=== PATIENT | female | born 1950 | race Caucasian/White ===

== ENCOUNTER 2018-09-16 07:06 | Day surgery (SDC) | payer OTHER ==
[~2018-09-16] VITALS: Ht 167.6 cm; Wt 76.1 kg
[~2018-09-16 07:06] MED LIST: AMLO10; AMLO5 PO; ASPI325 PO; ASPI81CH PO; ATEN50; ATOR80 PO; BACL10 PO; BELSOMRA20 MG PO; CLON1 PO; CLOP75 PO; Crutch1 EACH MISC; DIPH50; DIVA500EC PO; DOCU100 PO; ESTEST.62T; ESTR.75; HYDACE10B; HYDACE10B PO; HYDMOR2 PO; HYDR-86 PO; HYOS0.375T; IBUP800 PO; ISOMON30; LISI10; LISI5 PO; METF500 PO; METO50 PO; METO50ER PO; MULTI VITAMIN1 EACH PO; NAPR500 PO; NEBI10 PO; NEBI5 PO; NITR.6SL SL; Norco 10-325 T1 EACH PO; OLAN5 PO; OMEP20ER; OSTERA TABLET1 EACH PO; OXYACE5T PO; PANT40 PO; PREG75 PO; PROM25 PO; PROM25S PR; Prednisone20 MG PO; QUET300; RANO500T PO; RENEXA; SERT100 PO; SIMCOR; TRAZ150T57 PO; VENL75ER; VYTORIN
--- NOTE | 2018-09-16 08:08 | NUR ---
09/16/18 0808 Su Pollock V PT RESTING IN BED, SIDE RAILS IN PLACE, CALL LIGHT WITHIN REACH, VSS. PT REPORTS CHRONIC BACK PAIN 11/13, KNEES OF THE BED ELEVATED FOR COMFORT. PT TEACHING COMPLETED, PT DENIES QUESTIONS AT THIS TIME. NO PRE OP ORDERS PER DR. COHN.
--- NOTE | 2018-09-16 11:32 | NUR ---
09/16/18 1132 Beryl Zuleta RN TOOK REPORT AT 1125 FROM [facility].KT PT IS NOW IN THE CHAIR, ACCOMPANIED BY HER MOM AND SISTER. VSS. PT HAS PO FLUIDS AT CHAIRSIDE. PT IS TOELRATING PO FLUIDS WELL. PT DENIES PAIN AT THIS TIME. WARM BLANKETS PROVIDED. CALL LIGHT IN REACH.
== END 2018-09-16 12:08 | disposition home or self-care (01) ==
LOC: ORSCSDS 07:06
PROVIDERS: Surgery
PROC: 0HBT0ZZ Excision of Right Breast, Open Approach (ICD-10-PCS; principal; 2018-09-16 08:30)
DX: D05.11 Intraductal carcinoma in situ of right breast (principal); I25.10 Atherosclerotic heart disease of native coronary artery without angina pectoris; E11.9 Type 2 diabetes mellitus without complications; E78.5 Hyperlipidemia, unspecified; I10 Essential (primary) hypertension; Z79.899 Other long term (current) drug therapy
CPT/HCPCS: 82947; 88307; J2001; J2250; J2405; J3010; J7120

== ENCOUNTER → 2019-01-17 | Outpatient (CLI) | payer OTHER | END | disposition home or self-care (01) | LOC: LAB SHORT 18:23 → LAB 18:23 | DX: R30.0 Dysuria (principal) | CPT/HCPCS: 87086; 87147 ==

== ENCOUNTER 2019-11-01 08:23 | Day surgery (SDC) | payer OTHER ==
[~2019-11-01] VITALS: Ht 165.1 cm; Wt 71.0 kg
[~2019-11-01 08:23] MED LIST changes: +ANASTROZOLE5 GM PO; +COQ1050 MG PO; +Prinivil10 MG PO; +VITAMIN D35000 UNI2 PO; +Voltaren100 GM TD
[2019-11-01] MEDS ORDERED: METO50 PO (08:46)
[2019-11-01] MEDS ORDERED: [UNRECOGNIZED DRUG - OTHER] PO (08:52)
[2019-11-01] MEDS ORDERED: STOOL SOFTENER PO (08:56)
--- NOTE | 2019-11-01 11:35 | NUR ---
PT TO RECOVERY ROOM POST PROCEDURE. PT IS DROWSY, BUT ORIENTED AND CONVERSING APPROPRIATELY. PT DENIES CHEST PAIN/PRESSRE POST PROCEDURE. PT REPORTS BACK DISCOMFORT 4/10, CHRONIC-DENIES THE NEED FOR MEDICATION. MONITOR ST 100'S, B/P 107/60, AFEBRILE, SPO2 100% RA. R GROIN SITE NO SWELLING/HEMATOMA, VINCE AND TEGADERM DRSG INTACT-OLD DRAINAGE NOTED MAPPED; RLE +2 PULSES DP AND PT. PT'S SISTER AT THE BEDSIDE, UPDATED.
--- NOTE | 2019-11-01 12:35 | NUR ---
PT TOOK LUNCH WITHOUT PROBLEM.
[2019-11-01] MEDS ORDERED: AMLO5 PO (13:09)
--- NOTE | 2019-11-01 15:15 | NUR ---
PT AMB TO BATHROOM, GAIT STEADY, SITE UNCHANGED WITH ACTIVITY.
--- NOTE | 2019-11-01 15:50 | NUR ---
PT DRESSED SELF WITH MIN ASSISTANCE, SITE UNCHANGED; REVIEWED SITE MANAGEMENT WITH PT AND SISTER. IV REMOVED, CANNULA INTACT.
--- NOTE | 2019-11-01 15:58 | NUR ---
PT AND SISTER RECEIVED DISCHARGE INSTRUCTIONS, MED LIST AND AFTER CARE INSTRUCTIONS; VERBALIZED GOOD UNDERSTANDING. PT LEFT FACILITY WITH SISTER VIA W/C, CONDITION STABLE.
== END 2019-11-01 15:58 | disposition home or self-care (01) ==
LOC: MHTC 08:23
PROC: B201YZZ Plain Radiography of Multiple Coronary Arteries using Other Contrast (ICD-10-PCS; principal; 2019-11-01)
PROC: B202YZZ Plain Radiography of Single Coronary Artery Bypass Graft using Other Contrast (ICD-10-PCS; principal; 2019-11-01)
PROC: 4A023N7 Measurement of Cardiac Sampling and Pressure, Left Heart, Percutaneous Approach (ICD-10-PCS; principal; 2019-11-01)
DX: I25.718 Atherosclerosis of autologous vein coronary artery bypass graft(s) with other forms of angina pectoris (principal); I25.118 Atherosclerotic heart disease of native coronary artery with other forms of angina pectoris; E11.9 Type 2 diabetes mellitus without complications; I10 Essential (primary) hypertension; E78.5 Hyperlipidemia, unspecified; K21.9 Gastro-esophageal reflux disease without esophagitis; F32.9 Major depressive disorder, single episode, unspecified; Z95.5 Presence of coronary angioplasty implant and graft; Z79.84 Long term (current) use of oral hypoglycemic drugs; Z79.899 Other long term (current) drug therapy; F41.9 Anxiety disorder, unspecified; Z88.5 Allergy status to narcotic agent; Z88.8 Allergy status to other drugs, medicaments and biological substances
CPT/HCPCS: 82947; 93455; 99152; 99153; C1769; C1894; J0360; J1644; J2250; J3010; J7030; Q9967

== ENCOUNTER 2019-11-18 11:06 | Emergency (ER) | payer OTHER ==
[~2019-11-18] VITALS: Ht 167.6 cm; Wt 68.0 kg
[~2019-11-18 11:06] MED LIST changes: +STOOL SOFTENER PO; +[UNRECOGNIZED DRUG - OTHER] PO
[2019-11-18] MEDS ORDERED: Zithromax Tri-500 MG PO (11:55)
[2019-11-18 12:05] LABS: BASOPHILS ABSOLUTE AUTO 0.01 K/mm3 (0.00-0.23); BASOPHILS PERCENT AUTO 0 % (0-2); EOSINOPHILS ABSOLUTE AUTO 0.03 K/mm3 (0.00-0.68); EOSINOPHILS PERCENT AUTO 0 % (0-6); Hematocrit 38.7 % (33.0-51.0); Hemoglobin 12.9 g/dL (11.5-16.0); IMMATURE GRAN ABSOLUTE AUTO 0.04 K/mm3 (0.00-0.10); IMMATURE GRAN PERCENT AUTO 1 % (0-1); LYMPHOCYTES ABSOLUTE AUTO 1.12 K/mm3 (0.84-5.20); LYMPHOCYTES PERCENT AUTO 14 % (21-46); MONOCYTES ABSOLUTE AUTO 0.68 K/mm3 (0.16-1.47); MONOCYTES PERCENT AUTO 8 % (4-13); Mean Corpuscular HGB 29.3 pg (26.0-34.0); Mean Corpuscular HGB Conc 33.3 g/dL (31.5-36.5); Mean Corpuscular Volume 88 fL (80-100); Mean Platelet Volume 8.4 fL (9.1-12.4); NEUTROPHILS ABSOLUTE AUTO 6.36 K/mm3 (1.96-9.15); NEUTROPHILS PERCENT AUTO 77 % (41-73); Platelet Count 356 K/mm3 (150-400); RDW Coefficient Variation 14.2 % (11.7-14.2); White Blood Cell Count 8.24 K/mm3 (4.00-11.30)
[2019-11-18 12:24] LABS: Alanine Aminotransfer (ALT/SGP 23 U/L (12-78); Albumin, Blood 3.4 g/dL (3.4-5.0); Albumin/Globulin Ratio 0.7 (0.8-1.8); Alk Phos 140 U/L (50-136); Anion Gap 10 mmol/L (6-16); Aspartate Aminotrans (AST/SGOT 16 U/L (12-37); Bilirubin, Total 0.3 mg/dL (0.1-1.0); Blood Urea Nitrogen 18 mg/dL (8-24); Bun/Creatinine Ratio 23.1 (12.0-20.0); CO2, Blood 22 mmol/L (21-32); Calcium, Blood 9.3 mg/dL (8.5-10.1); Chloride, Blood 107 mmol/L (98-108); Creatinine, Blood 0.78 mg/dL (0.40-1.00); Globulin, Blood 4.6 g/dL (2.2-4.0); Glomerular Filtration Rate >60 (60-); Glucose, Blood 186 mg/dL (70-99); Potassium, Blood 3.8 mmol/L (3.5-5.5); Sodium, Blood 139 mmol/L (136-145); Troponin I <0.015 ng/mL (0.000-0.040)
[2019-11-18 12:38] LABS: Influenza A Negative (NEGATIVE); Influenza B Negative (NEGATIVE)
[2019-11-18] MEDS ORDERED: Prednisone20 MG PO (13:09)
[2019-11-18] MEDS ORDERED: ALBU90OI INH (13:09)
== END 2019-11-18 14:06 | disposition home or self-care (01) ==
LOC: ER 11:06
PROVIDERS: Emergency Medicine; Physician Assistant
DX: J40 Bronchitis, not specified as acute or chronic (principal); E78.5 Hyperlipidemia, unspecified; I10 Essential (primary) hypertension; K21.9 Gastro-esophageal reflux disease without esophagitis; E11.42 Type 2 diabetes mellitus with diabetic polyneuropathy; Z88.5 Allergy status to narcotic agent; Z79.899 Other long term (current) drug therapy
CPT/HCPCS: 36415; 71046; 80053; 83880; 84484; 85025; 87804; 93005; 93010; 94640; 99284-25

== ENCOUNTER → 2020-09-17 | Outpatient (CLI) | payer OTHER ==
[~2020-09-17] MED LIST changes: +ALBU90OI INH; +ENOX40I SC; +OXYC5 PO; +SULTRIDS PO; +Zithromax Tri-500 MG PO
[2020-09-17 13:19] LABS: Source, Urine Clean Catch
[2020-09-17 14:10] LABS: Appearance, Urine Clear (Clear); Bilirubin, Urine Neg (Neg); Blood, Urine Neg (Neg); Color, Urine Yellow (P-Yellow); Glucose Qualitative, Urine 2+ (Neg); Ketones, Urine Neg (Neg); Leukocyte Esterase, Urine Neg (Neg); Nitrite, Urine Neg (Neg); Protein, Urine Neg (Neg); Urobilinogen, Urine NORM (Normal)
== END | disposition home or self-care (01) ==
LOC: OLS 13:17 → LAB SHORT 13:17
PROVIDERS: Nurse Practitioner Family
DX: R30.0 Dysuria (principal)
CPT/HCPCS: 81003

== ENCOUNTER 2020-10-02 12:25 | Day surgery (SDC) | payer OTHER ==
[~2020-10-02] VITALS: Ht 167.6 cm; Wt 73.6 kg
[~2020-10-02 12:25] MED LIST changes: -ENOX40I SC; -OXYC5 PO; -SULTRIDS PO
--- NOTE | 2020-10-02 18:15 | NUR ---
PT ARRIVED TO ROOM ON OWN BED, EYES CLOSED BUT ANSWERS QUESTIONS/FOLLOWS DIRECTIONS. POST OP VS COMMENCED AND STABLE. PT DENIES PAIN R/T SPINAL ANESTHESIA, IS ABLE TO WIGGLE TOES/FEET, ELEVATE LEGS MINIMALLY. PT DENIES N/V, PROVIDED WITH ICE CHIPS/SNACKS, DIET ORDERED AND DINNER TRAY REQUESTED. OPERATIVE KNEE DRESSING C/D/I, CAPILLARY REFILL <3 SECONDS ON TOES, TOES WARM/PINK
[2020-10-03 04:19] LABS: BASOPHILS ABSOLUTE AUTO 0.01 K/mm3 (0.00-0.23); BASOPHILS PERCENT AUTO 0 % (0-2); EOSINOPHILS PERCENT AUTO 0 % (0-6); Hematocrit 30.2 % (33.0-51.0); IMMATURE GRAN ABSOLUTE AUTO 0.02 K/mm3 (0.00-0.10); IMMATURE GRAN PERCENT AUTO 0 % (0-1); LYMPHOCYTES ABSOLUTE AUTO 0.53 K/mm3 (0.84-5.20); LYMPHOCYTES PERCENT AUTO 5 % (21-46); MONOCYTES PERCENT AUTO 3 % (4-13); Mean Corpuscular HGB 29.3 pg (26.0-34.0); Mean Corpuscular HGB Conc 33.1 g/dL (31.5-36.5); Mean Corpuscular Volume 89 fL (80-100); Mean Platelet Volume 9.6 fL (9.1-12.4); NEUTROPHILS ABSOLUTE AUTO 9.18 K/mm3 (1.96-9.15); NEUTROPHILS PERCENT AUTO 91 % (41-73); Platelet Count 188 K/mm3 (150-400); RDW Standard Deviation 41.7 fL (35.1-46.3); Red Blood Cell Count 3.41 M/mm3 (3.80-5.20); White Blood Cell Count 10.04 K/mm3 (4.00-11.30)
[2020-10-03 04:35] LABS: Anion Gap 5 mmol/L (6-16); Blood Urea Nitrogen 20 mg/dL (8-24); CO2, Blood 26 mmol/L (21-32); Chloride, Blood 108 mmol/L (98-108); Creatinine, Blood 0.67 mg/dL (0.40-1.00); Glomerular Filtration Rate >60 (60-); Glucose, Blood 184 mg/dL (70-99); Potassium, Blood 4.4 mmol/L (3.5-5.5); Sodium, Blood 139 mmol/L (136-145)
--- NOTE | 2020-10-03 05:52 | NUR ---
SUMMARY PT REQUIRING BOTH IV AND PO PAIN MEDS TONIGHT. AMBULATES WITH WALKER AND ASSSIST. TOLERATING PO AND VOIDING.
[2020-10-03] MEDS ORDERED: ENOX40I SC (13:20)
[2020-10-03] MEDS ORDERED: OXYC5 PO (13:21)
[2020-10-03] MEDS ORDERED: PROM25 PO (13:22)
[2020-10-03] MEDS ORDERED: SULTRIDS PO (13:22)
--- NOTE | 2020-10-03 17:59 | NUR ---
DISCHARGE PT AND HER SISTER WERE PROVIDED WITH WRITTEN AND VERBAL DISCHARGE INSTRUCTIONS; THEY REPORTED UNDERSTANDING. PT WAS GIVEN EDUCATION ABOUT INCREASING HER METFORMIN TO TWICE DAILY INSTEAD OF ONCE DAILY IN ORDER TO BETTER MANAGE HER BLOOD GLUCOSE. DR. GAMBLE CONSULTED ON THIS PT AND MADE THE RECOMMENDATION TO INCREASE THE METFORMIN AND FOLLOW UP WITH PT'S PCP; OK FOR DISCHARGE PER DR. GAMBLE'S STANDPOINT. PT WAS ALSO EDUCATED TO FOLLOW UP WITH HER PCP WITHIN 1 WEEK TO ENSURE HER BLOOD SUGARS ARE LESS THAN 180 [address] OPTIMAL WOUND HEALING. DR. EMANUEL WAS NOTIFIED OF PLAN TO MANAGE BLOOD GLUCOSE LEVELS AND THAT BLOOD GLUCOSE WAS 225 AT LUNCH, OK TO CONTINUE WITH DISCHARGE PLAN FOR TODAY PER DR. EMANUEL. CLEAN DRESSINGS PROVIDED FOR DRESSING CHANGES. PT WAS ESCORTED OUT IN W/C BY MILTON STUDENT NURSE. PAIN MANAGED AT TIME OF DISCHARGE, PT TOLERATED PO AND VOIDING WELL.
== END 2020-10-03 16:49 | disposition home or self-care (01) ==
LOC: ORSCMMR 12:25 → ORD 14:30 → SURS 17:24 → ORSCMMR 17:24 → SURS 10-03 16:49
PROVIDERS: Orthopaedic Surgery
DX: M17.11 Unilateral primary osteoarthritis, right knee (principal); I10 Essential (primary) hypertension; I25.10 Atherosclerotic heart disease of native coronary artery without angina pectoris; K21.9 Gastro-esophageal reflux disease without esophagitis; E11.9 Type 2 diabetes mellitus without complications; F31.9 Bipolar disorder, unspecified; Z79.899 Other long term (current) drug therapy; Z79.82 Long term (current) use of aspirin
CPT/HCPCS: 36415; 73560-RT; 80048; 82947; 83735; 85025; 88300; 97110; 97116; 97162; A9270; C1713; C1776; J0171; J1100; J1170; J1650; J1815; J1885; J2250; J2405; J2704; J2795; J3010; J3370; J7120

== ENCOUNTER 2022-01-15 12:36 | Day surgery (SDC) | payer OTHER ==
[~2022-01-15] VITALS: Ht 167.6 cm; Wt 76.1 kg
[~2022-01-15 12:36] MED LIST changes: +ANASTROZOLE1 M7 PO; +Cyclobenzaprine5 MG PO; +ENOX40I SC; +ESCI10 PO; +FURO20 PO; +ONDA4 PO; +OXYC5 PO; +SULTRIDS PO
[2022-01-15] MEDS ORDERED: ATOR10 (13:32)
== END 2022-01-15 16:54 | disposition home or self-care (01) ==
LOC: ORSCSDS 12:36
PROVIDERS: Internal Medicine Gastroenterology
PROC: 0DBH8ZX Excision of Cecum, Via Natural or Artificial Opening Endoscopic, Diagnostic (ICD-10-PCS; principal; 2022-01-15 14:00)
PROC: 0DBN8ZX Excision of Sigmoid Colon, Via Natural or Artificial Opening Endoscopic, Diagnostic (ICD-10-PCS; principal; 2022-01-15 14:00)
PROC: 0DBP8ZX Excision of Rectum, Via Natural or Artificial Opening Endoscopic, Diagnostic (ICD-10-PCS; principal; 2022-01-15 14:00)
DX: R15.9 Full incontinence of feces (principal); K59.09 Other constipation; Z86.010 Personal history of colon polyps; D12.0 Benign neoplasm of cecum; D12.5 Benign neoplasm of sigmoid colon; K62.1 Rectal polyp; K62.6 Ulcer of anus and rectum; K57.30 Diverticulosis of large intestine without perforation or abscess without bleeding; E11.9 Type 2 diabetes mellitus without complications; Z79.82 Long term (current) use of aspirin; Z79.84 Long term (current) use of oral hypoglycemic drugs; Z79.899 Other long term (current) drug therapy
CPT/HCPCS: 82947; 88305; J0330; J0461; J2405; J2704; J7120

== ENCOUNTER → 2022-08-20 | Outpatient (CLI) | payer OTHER ==
[~2022-08-20] MED LIST changes: +ATOR10; +COQ-10100 MG PO
== END | disposition home or self-care (01) ==
LOC: LAB 10:49 → LAB SHORT 10:49
PROVIDERS: Family Medicine
DX: Z51.81 Encounter for therapeutic drug level monitoring (principal); Z79.818 Long term (current) use of other agents affecting estrogen receptors and estrogen levels; Z79.891 Long term (current) use of opiate analgesic
CPT/HCPCS: G0480

== ENCOUNTER 2022-11-17 23:08 | Inpatient (IN) | payer OTHER ==
[~2022-11-17] VITALS: Ht 167.6 cm; Wt 80.8 kg
[2022-11-17 23:36] LABS: BASOPHILS ABSOLUTE AUTO 0.05 K/mm3 (0.00-0.23); BASOPHILS PERCENT AUTO 0 % (0-2); EOSINOPHILS ABSOLUTE AUTO 0.07 K/mm3 (0.00-0.68); EOSINOPHILS PERCENT AUTO 1 % (0-6); Hematocrit 42.2 % (33.0-51.0); Hemoglobin 14.2 g/dL (11.5-16.0); IMMATURE GRAN ABSOLUTE AUTO 0.05 K/mm3 (0.00-0.10); IMMATURE GRAN PERCENT AUTO 0 % (0-1); LYMPHOCYTES ABSOLUTE AUTO 1.66 K/mm3 (0.84-5.20); LYMPHOCYTES PERCENT AUTO 13 % (21-46); MONOCYTES ABSOLUTE AUTO 0.74 K/mm3 (0.16-1.47); MONOCYTES PERCENT AUTO 6 % (4-13); Mean Corpuscular HGB 28.7 pg (26.0-34.0); Mean Corpuscular HGB Conc 33.6 g/dL (31.5-36.5); Mean Corpuscular Volume 85 fL (80-100); Mean Platelet Volume 10.2 fL (9.1-12.4); NEUTROPHILS ABSOLUTE AUTO 10.57 K/mm3 (1.96-9.15); NEUTROPHILS PERCENT AUTO 81 % (41-73); Platelet Count 272 K/mm3 (150-400); RDW Coefficient Variation 13.2 % (11.7-14.2); RDW Standard Deviation 40.9 fL (35.1-46.3); Red Blood Cell Count 4.94 M/mm3 (3.80-5.20); White Blood Cell Count 13.14 K/mm3 (4.00-11.30)
[2022-11-17 23:53] LABS: Bilirubin, Total 0.5 mg/dL (0.1-1.0); Bun/Creatinine Ratio 31.6 (12.0-20.0); Calcium, Blood 9.7 mg/dL (8.5-10.1); Creatinine, Blood 0.76 mg/dL (0.40-1.00); Potassium, Blood 3.8 mmol/L (3.5-5.5)
[2022-11-18 01:42] LABS: Source, Urine Clean Catch
[2022-11-18 02:03] LABS: Bilirubin, Urine Neg (Neg); Blood, Urine Neg (Neg); Glucose Qualitative, Urine 3+ (Neg); Ketones, Urine 2+ (Neg); Leukocyte Esterase, Urine Neg (Neg); Nitrite, Urine Neg (Neg); Protein, Urine 1+ (Neg); Urobilinogen, Urine NORM (Normal)
[2022-11-18 02:19] LABS: Appearance, Urine Clear (Clear); Color, Urine Yellow (P-Yellow)
--- NOTE | 2022-11-18 07:28 | NUR ---
Patient was admitted via stretcher from ED at 0327. Pt is able to ambulate to bathroom. Pt is in Isolation for GI panel. Pt has only voided since admit to room. Patient is incontinent and continent of urine. Attends in place. Pt has increased blood pressure that was rechecked manually. Pt is painful. Pt has lower abdominal pain that is crampy and sharp 8/10. Doctor Giovani notified of increased BP, increased heartrate, no order received at that time for BP. Pt was medicated with MS 1 mg for pain with mild relief. Pt given percocet 1 tab at 0700. Patient did rest lightly. Pt did receive 2nd NS bolus as ordered, lab to retry to draw lactic acid lab, unable to get at this time. Pt is able to call with needs. Call light in reach.
[2022-11-18 08:06] LABS: Albumin, Blood 3.8 g/dL (3.4-5.0); Bilirubin, Total 0.5 mg/dL (0.1-1.0); Bun/Creatinine Ratio 29.7 (12.0-20.0); Calcium, Blood 8.7 mg/dL (8.5-10.1); Creatinine, Blood 0.54 mg/dL (0.40-1.00); Globulin, Blood 3.7 g/dL (2.2-4.0); Potassium, Blood 3.8 mmol/L (3.5-5.5); Total Protein, Blood 7.5 g/dL (6.4-8.2)
[2022-11-18 09:09] LABS: BASOPHILS ABSOLUTE AUTO 0.03 K/mm3 (0.00-0.23); BASOPHILS PERCENT AUTO 0 % (0-2); EOSINOPHILS PERCENT AUTO 0 % (0-6); Hematocrit 42.3 % (33.0-51.0); Hemoglobin 13.9 g/dL (11.5-16.0); IMMATURE GRAN ABSOLUTE AUTO 0.04 K/mm3 (0.00-0.10); IMMATURE GRAN PERCENT AUTO 0 % (0-1); LYMPHOCYTES ABSOLUTE AUTO 0.82 K/mm3 (0.84-5.20); LYMPHOCYTES PERCENT AUTO 7 % (21-46); MONOCYTES ABSOLUTE AUTO 0.92 K/mm3 (0.16-1.47); MONOCYTES PERCENT AUTO 7 % (4-13); Mean Corpuscular HGB 28.6 pg (26.0-34.0); Mean Corpuscular HGB Conc 32.9 g/dL (31.5-36.5); Mean Corpuscular Volume 87 fL (80-100); Mean Platelet Volume 9.9 fL (9.1-12.4); NEUTROPHILS PERCENT AUTO 86 % (41-73); Platelet Count 181 K/mm3 (150-400); RDW Coefficient Variation 13.4 % (11.7-14.2); RDW Standard Deviation 42.8 fL (35.1-46.3); Red Blood Cell Count 4.86 M/mm3 (3.80-5.20); White Blood Cell Count 12.61 K/mm3 (4.00-11.30)
--- NOTE | 2022-11-18 09:53 | NUR ---
CALLED DR DUONG- PT LETHARGIC HAVING DIFFICULTY ANSWERING QUESTIONS. PT STATES 8/10 CHEST PAIN NO RADIATION TO THE ARM OR JAW, PT IS UNABLE TO DESCRIBE THE PAIN. FLUID BOLUS IS CURRENTLY RUNNING SBP IN THE 170'S. RECIEVED ORDER FOR STAT EKG, (ONE WAS DONE THIS MORNING DUE TO TACHY HR AND CRITICAL LABS) ADDITIONAL ONE ORDERED STAT D/T NEW ONST CHEST PAIN. TROPONIN ORDERED. SEPSIS FLUID BOLUS ORDERED. MD AT THE BEDSIDE NOW.
--- NOTE | 2022-11-18 10:37 | NUR ---
CALLED REPORT TO MRI CT TECHSUNI HAYES PT CURRENTLY HAVING SECOND BLOOD CULTURE DRAWN, IV ABX STARTED AND THEN PAUSED BEFORE INFUSION WAS STARTED. 1L FLUID BLOUS WAS RAN IV PUMP FAILED AT 909 ML INFUSED. IV ABX WERE DELAYED D/T LACK OF IV ACCESS. PT IS A HARD STICK. ONCE LAB COMPLETES THIS DRAW PT WILL TRANSFER TO PCU 16.
--- NOTE | 2022-11-18 11:07 | NUR ---
PT ARRIVED TO PCU 16 FROM MEDICAL FLOOR. REPORT RECEIVED FROM SUNI OLGUIN. PT ON RA, SATTING MID 90S. HR 139, SINUS TACH. RECIEVING IV ABX, WILL RECIEVE FLUID BOLUS. 1 IV ACCESS AT THIS TIME. LEAF BINNER ATTEMPTING TO PLACE FURTHER ACCESS. ASSISTED UP TO BSC, SBA. DENIES CP, STATES THAT WHAT SHE HAD ON MED WAS TYPICAL FOR HER.
--- NOTE | 2022-11-18 11:27 | NUR ---
PT TRANSFERED TO PCU- ON THE ELEVATOR THE PT STATED SHHE NO LONGER HAD ANY PAIN. PASSED ON TO CLAMP JIG ASSEMBLER ON ARRVAL TO THE UNIT.
--- NOTE | 2022-11-18 12:19 | NUR ---
SPOKE WITH DR DUONG REGARDING PLAN FOR PT. STATES PT WAS TRANSFERRED FOR ALTERED MENTAL STATUS AND SEPSIS. DR NOT CONCERNED ABOUT NSTEMI DUE TO NORMAL EKG AND FLAT TROPONIN. AWARE THAT PT STATED THAT CP WAS TYPICAL FOR HER. STATED NO NEED FOR GI AT THIS TIME, PT ABLE TO EAT DIET TOLERATED. MANAGER COLLEGE AWARE. BOLUS FLUIDS RUNNING AT THIS TIME PER ORDERS.
--- NOTE | 2022-11-18 18:41 | NUR ---
SHIFT SUMMARY: PT RESTING IN BED, VITAL SIGNS AND NEURO STATUS IMPROVED SINCE BOLUSES RECIEVED. MEDICATED X1 FOR HEADACHE. NO FURTHER C/O CHEST PAIN. NO FEVER THIS SHIFT. ERECTION SHOP SUPERVISOR AT BEDSIDE AT THIS TIME.
[2022-11-19 04:31] LABS: BASOPHILS ABSOLUTE AUTO 0.02 K/mm3 (0.00-0.23); BASOPHILS PERCENT AUTO 0 % (0-2); EOSINOPHILS PERCENT AUTO 1 % (0-6); Hematocrit 34.1 % (33.0-51.0); Hemoglobin 11.3 g/dL (11.5-16.0); IMMATURE GRAN ABSOLUTE AUTO 0.05 K/mm3 (0.00-0.10); IMMATURE GRAN PERCENT AUTO 0 % (0-1); LYMPHOCYTES ABSOLUTE AUTO 1.11 K/mm3 (0.84-5.20); LYMPHOCYTES PERCENT AUTO 9 % (21-46); MONOCYTES ABSOLUTE AUTO 0.95 K/mm3 (0.16-1.47); MONOCYTES PERCENT AUTO 8 % (4-13); Mean Corpuscular HGB 28.5 pg (26.0-34.0); Mean Corpuscular HGB Conc 33.1 g/dL (31.5-36.5); Mean Corpuscular Volume 86 fL (80-100); Mean Platelet Volume 9.7 fL (9.1-12.4); NEUTROPHILS PERCENT AUTO 82 % (41-73); Platelet Count 176 K/mm3 (150-400); RDW Coefficient Variation 13.7 % (11.7-14.2); RDW Standard Deviation 42.8 fL (35.1-46.3); Red Blood Cell Count 3.97 M/mm3 (3.80-5.20); White Blood Cell Count 12.33 K/mm3 (4.00-11.30)
[2022-11-19 04:46] LABS: Calcium, Blood 8.3 mg/dL (8.5-10.1); Creatinine, Blood 0.54 mg/dL (0.40-1.00); Potassium, Blood 3.7 mmol/L (3.5-5.5)
--- NOTE | 2022-11-19 06:00 | NUR ---
Assumed care of pt at 1900. A/Ox4, cooperative with care. Patient is lethargic but still able to be independent to BSC. C/o abdominal pain and cramping with is only partly relieved with PRN medication and heating pad. Sats over 95% on RA, SBP increased during this shift. Home Norvasc reordered, however resident wanted 5mg at once and not patients normal 2.5mg BID. Stat dose ordered and SBP decreased form 160 to 110. Maintenance fluids also adjusted from [address] on tele 110-125. Denies CP/pressure. Moderate abdominal distention that is tender to palpation and hyperactive bowel tones. Several small to medium loose BM's at beginning of shift that also contained blood. Trending H&H with another ordered in a few hours. Will report to dayshift RN.
[2022-11-19 11:24] LABS: Hematocrit 32.7 % (33.0-51.0); Hemoglobin 10.9 g/dL (11.5-16.0)
--- NOTE | 2022-11-19 18:26 | NUR ---
SHIFT SUMMARY PT A/OX4 AND COOPERATIVE OF CARE. PT ABLE TO EXPRESS NEEDS AND CALLS APPROPIATE. PT TACHYCARDIC THROUGHOUT SHIFT WITH HR RANGING 100-120'S. OTHER VSS THROUGHOUT SHIFT WITH 02 SATS IN THE 90'S ON RA. NO REPORT OF CHEST PAIN/PRESSURE THROUGHOUT SHIFT. NO REPORT OF SOB/DYSPNEA THROUGHOUT SHIFT. STOOL SAMPLE COLLECTED THSI SHIFT, BLOODY MUSCOID STOOL NOTED DURING COLLECTION. PT ABLE TO TRANSFER SELF TO BEDSIDE COMMODE, SBA, TOLERATED WELL. PT RPEORTED ABDOMINAL PAIN THROUGHOUT SHIFT, TREATED PER EMAR. CONTINUES ABX TREATMENT PER ORDERS.
--- NOTE | 2022-11-19 20:20 | NUR ---
ASSUMED CARE. FAMILY AT BEDSIDE. PT AOX3. STATS PAIN MINIMAL ACROSS ABDOMIN. TENDER ON PALPITATION. NO NAUSEA AT THIS TIME. STATES HAD A FEW SMALL BLOODY MUCUS STOOLS TODAY. POOR APPETITE. HBG TRENDING DOWN LAST DRAW 10.9. DENIES DIZZINESS OR BEING LIGHTHEADED. VS STABLE AT THIS TIME. IVF INFUSING. BLOOD SUGAR NO COVERAGE. CDIFF TEST PENDING.
[2022-11-20 05:58] LABS: BASOPHILS ABSOLUTE AUTO 0.03 K/mm3 (0.00-0.23); BASOPHILS PERCENT AUTO 0 % (0-2); EOSINOPHILS ABSOLUTE AUTO 0.17 K/mm3 (0.00-0.68); EOSINOPHILS PERCENT AUTO 2 % (0-6); Hematocrit 31.7 % (33.0-51.0); Hemoglobin 10.4 g/dL (11.5-16.0); IMMATURE GRAN ABSOLUTE AUTO 0.02 K/mm3 (0.00-0.10); IMMATURE GRAN PERCENT AUTO 0 % (0-1); LYMPHOCYTES ABSOLUTE AUTO 1.07 K/mm3 (0.84-5.20); LYMPHOCYTES PERCENT AUTO 12 % (21-46); MONOCYTES ABSOLUTE AUTO 0.61 K/mm3 (0.16-1.47); MONOCYTES PERCENT AUTO 7 % (4-13); Mean Corpuscular HGB Conc 32.8 g/dL (31.5-36.5); Mean Corpuscular Volume 88 fL (80-100); NEUTROPHILS ABSOLUTE AUTO 7.18 K/mm3 (1.96-9.15); NEUTROPHILS PERCENT AUTO 79 % (41-73); Platelet Count 129 K/mm3 (150-400); RDW Coefficient Variation 13.7 % (11.7-14.2); RDW Standard Deviation 44.2 fL (35.1-46.3); Red Blood Cell Count 3.59 M/mm3 (3.80-5.20); White Blood Cell Count 9.08 K/mm3 (4.00-11.30)
--- NOTE | 2022-11-20 06:33 | NUR ---
SHIFT SUMMARY: PT HAS REMAINED STABLE. NO FURTHER RED MUCUS STOOLS THIS SHIFT. CONTINUES TO HAVE ABDOMINAL PAIN AND HEADACHES. OXYCODONE GIVEN ONCE AND TYLENOL. NO NAUSEA OR VOMITING. VS HAVE REMAINED STABLE. STILL NEEDS STOOL SAMPLE LAB DID NOT HAVE ENOUGH FOR COMPLETE GI PANEL.
[2022-11-20 06:36] LABS: Albumin, Blood 2.7 g/dL (3.4-5.0); Bilirubin, Total 0.4 mg/dL (0.1-1.0); Bun/Creatinine Ratio 10.2 (12.0-20.0); Calcium, Blood 8.2 mg/dL (8.5-10.1); Creatinine, Blood 0.49 mg/dL (0.40-1.00); Globulin, Blood 2.8 g/dL (2.2-4.0); Potassium, Blood 3.5 mmol/L (3.5-5.5); Total Protein, Blood 5.5 g/dL (6.4-8.2)
[2022-11-20 16:59] LABS: Adenovirus F 40/41 Not Detected (NOT DETECT); Astrovirus Not Detected (NOT DETECT); Campylobacter Sp Not Detected (NOT DETECT); Cryptosporidium Not Detected (NOT DETECT); Cyclospora Cayetanensis Not Detected (NOT DETECT); E. Coli O157 Not Detected (NOT DETECT); Entamoeba Histolytica Not Detected (NOT DETECT); Enteroaggregative E. coli-EAEC Not Detected (NOT DETECT); Enteropathogenic E. coli-EPEC Not Detected (NOT DETECT); Enterotoxigenic E. coli-ETEC Not Detected (NOT DETECT); Giardia Lamblia Not Detected (NOT DETECT); Norovirus GI/GII Not Detected (NOT DETECT); Plesiomonas Shigelloides Not Detected (NOT DETECT); Rotavirus A Not Detected (NOT DETECT); Salmonella Sp Not Detected (NOT DETECT); Sapovirus Not Detected (NOT DETECT); Shiga Toxin-prod E. coli-STEC Not Detected (NOT DETECT); Shigella/Enteroin E. coli-EIEC Not Detected (NOT DETECT); Vibrio Cholerae Not Detected (NOT DETECT); Vibrio Sp Not Detected (NOT DETECT); Yersinia Enterocolitica Not Detected (NOT DETECT)
--- NOTE | 2022-11-20 17:50 | NUR ---
SHIFT SUMMARY PT A/OX4 AND COOPERATIVE OF CARE. PT ANXIOUS AT TIMES DURING SHIFT. PT HR TACHY THIS MORNING RANGING IN THE 100-110'S, HR TO THE 90'S AROUND 0930 AND HAS SUSTAINED FOR REMAINDER OF SHIFT IN THE 90'S. OTHER VSS THROUGHOUT SHIFT WITH 02 SATS IN THE 90'S ON RA. PT REPORTED "MINOR PRESSURE" AT BASE OF HER CHEST TAHT IS RELATED TO ABDOMINAL PAIN. NO RPEORT OF SOB/DYSPNEA. STOOL SAMPLE COLLECTED, NEGATIVE FOR C-DIFF. PT INEDEPENDENT IN ROOM. PT CALLED APPROPIATE DURING SHIFT.
[2022-11-21 05:38] LABS: BASOPHILS ABSOLUTE AUTO 0.02 K/mm3 (0.00-0.23); BASOPHILS PERCENT AUTO 0 % (0-2); EOSINOPHILS ABSOLUTE AUTO 0.16 K/mm3 (0.00-0.68); EOSINOPHILS PERCENT AUTO 2 % (0-6); Hematocrit 31.8 % (33.0-51.0); Hemoglobin 10.6 g/dL (11.5-16.0); IMMATURE GRAN ABSOLUTE AUTO 0.02 K/mm3 (0.00-0.10); IMMATURE GRAN PERCENT AUTO 0 % (0-1); LYMPHOCYTES ABSOLUTE AUTO 0.98 K/mm3 (0.84-5.20); LYMPHOCYTES PERCENT AUTO 14 % (21-46); MONOCYTES ABSOLUTE AUTO 0.54 K/mm3 (0.16-1.47); MONOCYTES PERCENT AUTO 8 % (4-13); Mean Corpuscular HGB 28.7 pg (26.0-34.0); Mean Corpuscular HGB Conc 33.3 g/dL (31.5-36.5); Mean Corpuscular Volume 86 fL (80-100); Mean Platelet Volume 9.4 fL (9.1-12.4); NEUTROPHILS ABSOLUTE AUTO 5.33 K/mm3 (1.96-9.15); NEUTROPHILS PERCENT AUTO 76 % (41-73); Platelet Count 153 K/mm3 (150-400); RDW Coefficient Variation 13.4 % (11.7-14.2); RDW Standard Deviation 42.3 fL (35.1-46.3); Red Blood Cell Count 3.69 M/mm3 (3.80-5.20); White Blood Cell Count 7.05 K/mm3 (4.00-11.30)
[2022-11-21 05:54] LABS: Bun/Creatinine Ratio 10.9 (12.0-20.0); Calcium, Blood 8.3 mg/dL (8.5-10.1); Creatinine, Blood 0.55 mg/dL (0.40-1.00); Potassium, Blood 3.3 mmol/L (3.5-5.5)
--- NOTE | 2022-11-21 07:00 | NUR ---
SHIFT SUMMARY: PT A&OX4, ABLE TO MAKE NEEDS KNOWN, AND FOLLOW DIRECTIONS. PT REPORTS ANXIETY ABOUT WANTING TO GO HOME. CONSOLATION GIVEN. PT HAS DENIES ANY SOB OR CHEST PAIN. HR SINUS RHYTHM/SINUS TACH IN 90'S TO LOW 100'S. PT HAD ONE SHORT RUN OF SVT, PT ASYMPTOMATIC. PER REPORT THIS IS NOT NEW FOR THIS PT. MEDICATED FOR CHRONIC PAIN WITH PRN PAIN MEDICATION, SEE EMAR. PT DENIES HAVING ANY NAUSEA DURING THIS SHIFT BUT HAS COMPLAINTS OF OCCASIONAL ABDOMENAL CRAMPS. UP TO BSC INDEPENDTLY, TOLERATING MOVEMENT WELL. VODING CLEAR, YELLOW URINE WITHOUT DIFFCIULTY.
--- NOTE | 2022-11-21 07:47 | NUR ---
Received report from Veronica CUL[facility]. Patient in bed awake and on right side. She is alert and oriented and is able to communicate her needs. She requested pain medication for 7/10 stomach pain and medicated per NOV. She has IV to LW and is infusing NS at 100ml/hr.Potassium being covered IV. She is independent with positioning and getting up to bedside cammode. She is on RA and sats >90% and denies and breathing problems. MAEW but weak.
--- NOTE | 2022-11-21 11:09 | NUR ---
Patient has been resting off and on and been up to [facility] several times. She remains on RA and sats >90%. She has had family by and stayed until Dr Bae had seen patient. She is now requesting something for anxiety. She has been independent in room so far today. She stayed up in chair for breakfast for several hours before she went back to bed. She calls appropriately for needs. CBG 225 and coverage needed.
--- NOTE | 2022-11-21 12:00 | NUR ---
Dr Chung has been by to see patient and will be doing scope tomorrow 11/22 around 1000 am. Patient wiill be started on Golytly. She has been changed to clear liquid no reds, VSS. She is independent in room back to bed and cammode. She continues on NS at 100 ml/hr. Family at bedside,
--- NOTE | 2022-11-21 15:16 | NUR ---
Patient started prep at 1245. Placed powerGlide in [place] and removed 20ga in wrist that was bothering patient. She has been independent from bed to bedside cammode. She has tolerated prep well and is to continue until clear, R/T constipation. medicating with Zofran for nausea.
--- NOTE | 2022-11-21 18:11 | NUR ---
END OF SHIFT: PATIENT IS ALERT AND ORIENTED, PLEASANT COOPERATIVE WITH CARE. CURRENTLY EXPERIENCING LOWER ABD PAIN THAT IS TOLERABLE FOR PATIENT AT THIS TIME. PATIENT IS INDEPENDENT IN THE ROOM CALLS APPROPRIATELY. DENIES CHEST PAIN ,MINOR ELEVATED BLOOD PRESSURE RELATED TO PAIN AND ANXIETY WILL ABHISHEK BEFORE END OF SHIFT. PATIENT HAS STARTED HER BOWEL PREP AND IS NOW HAVING VERY LARGE AMOUNTS OF BROWN STOOL PER DR HUNG IF PATIENT IS NOT PASSING CLEAR STOOL THAN REPEAT ANOTHER GALLON OK TO PLACE ORDER. DR. HUNG ALSO WANTS TO BE CALLED WHEN BOWEL IS CLEAR. POTENTIALLY SCHEDULED FOR 1000 ENDO ON 11/22/22 IF CORRECT PREP. PATIENT IS NOT TOLERATING WELL, BUT MODERATE TOLERATION OF THE PREP. WILL CONTINUE TO MONITOR UNTIL SHIFT CHANGE
--- NOTE | 2022-11-21 22:34 | NUR ---
ASSUMED PT CARE FORM MARE RN ON . PT IS A&OX4. COMPLAINS OF NAUSEA AND ABODMENAL CRAMPS. DENIES SOB OR CHEST PAIN. MEDICATED FOR NAUSEA AND ABDOMENAL CRAMPS. SPOKE WITH DR. FOREMAN ON THE PHONE. INSTRUCTED TO INCREASE RATE THAT PT IS DRINKING BOWEL PREP, STOOL NEEDS TO BE CLEAR. PT ONLY ABLE TO DRINK WATER, OTHER LIQUIDS. GIVE PT SECOND GALLON BOWEL PREP IF STOOL NOT CLEAR AFTER FIRST. PT DRINKING 8 OZ BOWEL PREP EVERY 15 MINUTES. CONINTUES TO HAVE LIQUID STOOLS, NOW BROWN/GREEN. ENCOURAGEMENT GIVEN TO CONTINUE. WILL MONITOR. CALL LIGHT IN REACH.
--- NOTE | 2022-11-22 01:52 | NUR ---
PT DRANK 1 FULL GALLON OF BOWEL PREP AND 3/4 OR SECOND GALLOW. HAVING UNCONTROLLED LIQUID STOOLS EVERY 10-15 MINUTES. STOOL IS NOW CLEAR, BILE GREEN IN COLOR.
[2022-11-22 04:43] LABS: BASOPHILS ABSOLUTE AUTO 0.02 K/mm3 (0.00-0.23); BASOPHILS PERCENT AUTO 0 % (0-2); EOSINOPHILS ABSOLUTE AUTO 0.12 K/mm3 (0.00-0.68); EOSINOPHILS PERCENT AUTO 2 % (0-6); Hematocrit 31.4 % (33.0-51.0); Hemoglobin 10.5 g/dL (11.5-16.0); IMMATURE GRAN ABSOLUTE AUTO 0.02 K/mm3 (0.00-0.10); IMMATURE GRAN PERCENT AUTO 0 % (0-1); LYMPHOCYTES ABSOLUTE AUTO 0.84 K/mm3 (0.84-5.20); LYMPHOCYTES PERCENT AUTO 15 % (21-46); MONOCYTES ABSOLUTE AUTO 0.46 K/mm3 (0.16-1.47); MONOCYTES PERCENT AUTO 8 % (4-13); Mean Corpuscular HGB 28.5 pg (26.0-34.0); Mean Corpuscular HGB Conc 33.4 g/dL (31.5-36.5); Mean Corpuscular Volume 85 fL (80-100); Mean Platelet Volume 9.7 fL (9.1-12.4); NEUTROPHILS ABSOLUTE AUTO 4.34 K/mm3 (1.96-9.15); NEUTROPHILS PERCENT AUTO 75 % (41-73); Platelet Count 209 K/mm3 (150-400); RDW Coefficient Variation 13.2 % (11.7-14.2); RDW Standard Deviation 41.1 fL (35.1-46.3); Red Blood Cell Count 3.69 M/mm3 (3.80-5.20)
[2022-11-22 04:57] LABS: Calcium, Blood 8.5 mg/dL (8.5-10.1); Creatinine, Blood 0.5 mg/dL (0.40-1.00); Potassium, Blood 3.1 mmol/L (3.5-5.5)
--- NOTE | 2022-11-22 05:35 | NUR ---
PT CONTINUES TO HAVE FREQUENT, CLEAR GREEN/YELLOW STOOLS. COMPLAINTS OF OCCASIONAL ABDOMEN CRAMPS THAT SUBSIDE AFTE BM. RESTING IN BED WITH EYES CLOSED. APPEARS TO BE SLEEPING. CALL LIGHT IN REACH.
--- NOTE | 2022-11-22 10:20 | NUR ---
PT STATES SHE HAD ANGINA FOR A FEW SECONDS THIS MORNING WITH L SHOULDER PAIN, BUT DOES NOT HAVE CURRENT CHEST PAIN.
--- NOTE | 2022-11-22 11:17 | NUR ---
11/22/22 1117 Pura Love HISTORY, CHART, MEDICATIONS AND ALLERGIES REVIEWED BEFORE START OF PROCEDURE. PATIENT CONFIRMS NPO STATUS AND AGREES WITH SCHEDULED PROCEDURE. 3-LEAD EKG REVIEWED WITH PHYSICIAN PRIOR TO START OF PROCEDURE. MONITOR INTACT WITH CONTINUOUS PULSE OXIMETRY,CAPNOGRAPHY, 3-LEAD EKG, INTERMITTENT BP. SUPPLEMENTAL O2 TO BE TITRATED THROUGHOUT PROCEDURE TO MAINTAIN O2 SATURATION ABOVE 90%. PATIENT DETERMINED TO BE ASA APPROPRIATE FOR PROPOFOL SEDATION PRIOR TO START OF PROCEDURE BY DR. HUNG.
[2022-11-22 14:19] LABS: C DIFFICILE DNA Duplicate (Negative)
--- NOTE | 2022-11-22 16:55 | NUR ---
SHIFT SUMMARY PT A&OX4. SP02>90% ON RA. TELEMETRY SHOWED MOSTLY NSR/ST THIS SHIFT, 80'S-110'S. PT DID HAVE BRIEF RUN OF 160'S THIS AM. PT DENIED SYMPTOMS/CP. PT NPO FOR SCOPE THIS AM. PT WENT TO SCOPE AROUND 10 AM. PT REPORT, PT C/O OF CP WHILE PREPARING FOR PROCEDURE W/ OR STAFF. EKG DONE, TROPONIN DRAWN,SEE RESULTS. SCOPE DONE. PT TRANSPORTED BACK TO ROOM VIA WHEELCHAIR, FAMILY UPDATED BY BARK GRINDER. PT VITALS STABLE POST SCOPE. C/O OF HEADACHE, TYLENOL GIVEN PER EMAR. ABX INFUSED PER EMAR. FLUIDS INFUSED PER EMAR. UP TO BSC TO VOID MULTIPLE TIMES THIS AFTERNOON. FAMILY IN ROOM ALL DAY. C/O OF ANXIETY. MEDICATED PER EMAR X1. BED BATH GIVEN. CALL LGIHT IN REACH. TALKING TO SISTER IN ROOM.
--- NOTE | 2022-11-22 21:44 | NUR ---
ASSUMED PT CARE FROM MARE CULP ON . PT A&OX4. ABLE TO MAKE NEEDS KNOWN AND FOLLOW DIRECTIONS. DENIES ANY SOB OR CHEST PAIN THIS EVENING. HR SR IN THE 80'S AND O2 IS > 92% ON RA. DENIES NAUSEA OR ABDOMEN CRAMPS THIS EVENING. DENIES NEEDS AT THIS TIME. CALL LIGHT IN REACH.
--- NOTE | 2022-11-23 06:26 | NUR ---
PT SLEEPING MAJORITY OF NIGHT. RESPIRATIONS EVEN AND UNLABORED. DOES NOT APPEAR IN ANY DISTRESS. NO ACUTE CHANGES THROUGHOUT THE NIGHT. CALL LIGHT IN REACH.
== END 2022-11-23 10:57 | disposition home or self-care (01) | DRG 871 ==
LOC: ER 23:08 → MEDS 11-18 03:23 → PCU 11-18 03:23 → MEDS 11-18 03:27 → PCU 11-18 10:56
PROVIDERS: Emergency Medicine; Family Medicine; Internal Medicine; Internal Medicine Gastroenterology; ADMIT Internal Medicine
PROC: 3E03329 Introduction of Other Anti-infective into Peripheral Vein, Percutaneous Approach (ICD-10-PCS; principal; 2022-11-18)
PROC: 0DBM8ZX Excision of Descending Colon, Via Natural or Artificial Opening Endoscopic, Diagnostic (ICD-10-PCS; 2022-11-22)
PROC: 0DBL8ZX Excision of Transverse Colon, Via Natural or Artificial Opening Endoscopic, Diagnostic (ICD-10-PCS; 2022-11-22)
PROC: 0DBN8ZX Excision of Sigmoid Colon, Via Natural or Artificial Opening Endoscopic, Diagnostic (ICD-10-PCS; 2022-11-22)
PROC: 0DBP8ZX Excision of Rectum, Via Natural or Artificial Opening Endoscopic, Diagnostic (ICD-10-PCS; 2022-11-22)
PROC: 0DBL8ZZ Excision of Transverse Colon, Via Natural or Artificial Opening Endoscopic (ICD-10-PCS; 2022-11-22 10:00)
DX: A41.9 Sepsis, unspecified organism (principal); G93.41 Metabolic encephalopathy; K55.039 Acute (reversible) ischemia of large intestine, extent unspecified; E87.20 Acidosis, unspecified; R65.20 Severe sepsis without septic shock; I25.10 Atherosclerotic heart disease of native coronary artery without angina pectoris; E78.5 Hyperlipidemia, unspecified; I10 Essential (primary) hypertension; E11.9 Type 2 diabetes mellitus without complications; K21.9 Gastro-esophageal reflux disease without esophagitis; K58.9 Irritable bowel syndrome, unspecified; L40.9 Psoriasis, unspecified; F31.9 Bipolar disorder, unspecified; M54.50 Low back pain, unspecified; G89.29 Other chronic pain; F41.9 Anxiety disorder, unspecified; G47.00 Insomnia, unspecified; M54.16 Radiculopathy, lumbar region; Z90.89 Acquired absence of other organs; Z98.51 Tubal ligation status; Z90.710 Acquired absence of both cervix and uterus; Z98.1 Arthrodesis status; Z95.1 Presence of aortocoronary bypass graft; Z88.0 Allergy status to penicillin; Z88.5 Allergy status to narcotic agent; Z88.8 Allergy status to other drugs, medicaments and biological substances; Z79.82 Long term (current) use of aspirin; Z79.84 Long term (current) use of oral hypoglycemic drugs; Z79.899 Other long term (current) drug therapy
CPT/HCPCS: 36415; 74177; 80048; 80053; 82947; 83605; 83993; 84484; 85014; 85018; 85025; 87040; 87507; 88305; 93005; 93010; 96365-59; 96367; 99285-25; A9270; C1751; J0696; J2270; J2405; J2704; J3480; J7030; J7050; J7120; Q9967

== ENCOUNTER → 2023-01-11 | Outpatient (CLI) | payer OTHER ==
[2023-01-11 14:04] LABS: Albumin, Blood 3.7 g/dL (3.4-5.0); Albumin/Globulin Ratio 1.1 (0.8-1.8); Bilirubin, Total 0.7 mg/dL (0.1-1.0); Bun/Creatinine Ratio 16.7 (12.0-20.0); Calcium, Blood 9.5 mg/dL (8.5-10.1); Creatinine, Blood 0.78 mg/dL (0.40-1.00); Globulin, Blood 3.5 g/dL (2.2-4.0); Potassium, Blood 4.4 mmol/L (3.5-5.5); Total Protein, Blood 7.2 g/dL (6.4-8.2)
== END | disposition home or self-care (01) ==
LOC: LAB 10:41 → LAB SHORT 10:41
PROVIDERS: Nurse Practitioner Family
DX: E11.49 Type 2 diabetes mellitus with other diabetic neurological complication (principal); E11.42 Type 2 diabetes mellitus with diabetic polyneuropathy
CPT/HCPCS: 36415; 80053; 83036

== ENCOUNTER 2023-02-04 11:17 | Day surgery (SDC) | payer OTHER ==
[~2023-02-04] VITALS: Ht 167.6 cm; Wt 70.1 kg
[2023-02-04] MEDS ORDERED: ESCI10 (11:38)
[2023-02-04 13:41] VITALS: BP 96/71
== END 2023-02-04 13:35 | disposition home or self-care (01) ==
LOC: ORSCSDS 11:17
PROVIDERS: Internal Medicine Gastroenterology
PROC: 0DB98ZX Excision of Duodenum, Via Natural or Artificial Opening Endoscopic, Diagnostic (ICD-10-PCS; 2023-02-04)
PROC: 0DB68ZX Excision of Stomach, Via Natural or Artificial Opening Endoscopic, Diagnostic (ICD-10-PCS; 2023-02-04)
PROC: 0D758ZZ Dilation of Esophagus, Via Natural or Artificial Opening Endoscopic (ICD-10-PCS; principal; 2023-02-04 12:30)
DX: R13.10 Dysphagia, unspecified (principal); R11.0 Nausea; K29.50 Unspecified chronic gastritis without bleeding; K21.9 Gastro-esophageal reflux disease without esophagitis; I10 Essential (primary) hypertension; E78.5 Hyperlipidemia, unspecified; K58.9 Irritable bowel syndrome, unspecified; I25.10 Atherosclerotic heart disease of native coronary artery without angina pectoris; F41.9 Anxiety disorder, unspecified; E11.9 Type 2 diabetes mellitus without complications; Z95.1 Presence of aortocoronary bypass graft; G62.9 Polyneuropathy, unspecified; F31.9 Bipolar disorder, unspecified; Z79.82 Long term (current) use of aspirin; Z79.84 Long term (current) use of oral hypoglycemic drugs; Z79.899 Other long term (current) drug therapy
CPT/HCPCS: 82947; 88305; 88342; J2704; J7120

== ENCOUNTER → 2023-03-08 | Outpatient (CLI) | payer OTHER ==
[~2023-03-08] MED LIST changes: +ESCI10
== END ==
LOC: LAB SHORT 12:45 → LAB 12:45
DX: N39.0 Urinary tract infection, site not specified (principal)
CPT/HCPCS: 87077; 87086; 87186

== ENCOUNTER → 2023-07-14 | Outpatient (CLI) | payer OTHER | END | disposition home or self-care (01) | LOC: LAB 14:30 → LAB SHORT 14:30 | DX: N39.0 Urinary tract infection, site not specified (principal) | CPT/HCPCS: 87077; 87086; 87186 ==

== ENCOUNTER → 2023-09-21 | Outpatient (CLI) | payer OTHER ==
[2023-09-22 09:35] LABS: Candida species (DNA Probe) Negative (NEGATIVE); G. vaginalis (DNA Probe) Negative (NEGATIVE); T. vaginalis (DNA Probe) Negative (NEGATIVE)
== END ==
LOC: LAB SHORT 14:09 → LAB 14:09
PROVIDERS: Advanced Practice Midwife
DX: N76.0 Acute vaginitis (principal)
CPT/HCPCS: 87480; 87510; 87660

== ENCOUNTER 2025-01-12 23:04 | Emergency (ER) | payer OTHER ==
[~2025-01-12] VITALS: Ht 165.1 cm; Wt 59.0 kg
[~2025-01-12 23:04] MED LIST changes: +AZIT250 PO; +CELEBREX200 MG PO; +ESTRADIOL42.5 GM VAG; +HYDROCODONE-AC1 EA19 PO; +KLONOPIN0.5 M9 PO; +LIPITOR80 MG PO; +METFORMIN HCL500 M3 PO; +MIRT15 PO; +ONDA4ODT MM; +OZEMPIC0.25 MG/02 SC
[2025-01-12] MEDS ORDERED: Ketorolac Tromethamine 15mg Vial IV ONE (23:20)
[2025-01-12] MEDS ORDERED: HYDROmorphone HCl/Pf 1MG SYR IV ONE (23:20)
[2025-01-13] MEDS ORDERED: HYDROmorphone HCl/Pf 1MG SYR IV ONE (00:35)
[2025-01-13 00:45] LABS: BASOPHILS ABSOLUTE AUTO 0.02 K/mm3 (0.00-0.23); BASOPHILS PERCENT AUTO 0 % (0-2); EOSINOPHILS PERCENT AUTO 2 % (0-6); Hematocrit 33.4 % (33.0-51.0); Hemoglobin 11.2 g/dL (11.5-16.0); IMMATURE GRAN ABSOLUTE AUTO 0.02 K/mm3 (0.00-0.10); IMMATURE GRAN PERCENT AUTO 0 % (0-1); LYMPHOCYTES ABSOLUTE AUTO 0.86 K/mm3 (0.84-5.20); LYMPHOCYTES PERCENT AUTO 15 % (21-46); MONOCYTES PERCENT AUTO 9 % (4-13); Mean Corpuscular HGB 28.6 pg (26.0-34.0); Mean Corpuscular HGB Conc 33.5 g/dL (31.5-36.5); Mean Corpuscular Volume 85 fL (80-100); Mean Platelet Volume 9.2 fL (9.1-12.4); NEUTROPHILS ABSOLUTE AUTO 4.07 K/mm3 (1.96-9.15); NEUTROPHILS PERCENT AUTO 73 % (41-73); Platelet Count 208 K/mm3 (150-400); RDW Coefficient Variation 14.5 % (11.7-14.2); Red Blood Cell Count 3.92 M/mm3 (3.80-5.20); White Blood Cell Count 5.57 K/mm3 (4.00-11.30)
[2025-01-13 01:13] LABS: Albumin, Blood 3.8 g/dL (3.4-5.0); Albumin/Globulin Ratio 1.3 (0.8-1.8); Bilirubin, Total 0.8 mg/dL (0.1-1.0); Bun/Creatinine Ratio 25.8 (12.0-20.0); Calcium, Blood 9.3 mg/dL (8.5-10.1); Creatinine, Blood 0.7 mg/dL (0.40-1.00); Potassium, Blood 3.7 mmol/L (3.5-5.5); Total Protein, Blood 6.8 g/dL (6.4-8.2)
[2025-01-13 01:30] VITALS: BP 120/88
[2025-01-19] MEDS ORDERED: BELSOMRA10 MG PO (07:58)
[2025-01-19] MEDS ORDERED: MIDO5 PO (08:00)
[2025-01-19] MEDS ORDERED: BISA10S PR (08:01)
[2025-01-19] MEDS ORDERED: BANOPHEN25 MG PO (08:01)
[2025-01-19] MEDS ORDERED: Norco 10-325 T1 EACH PO (08:03)
[2025-01-19] MEDS ORDERED: OMEP20ER PO (08:04)
[2025-01-19] MEDS ORDERED: OXYC10TA19 PO (08:05)
== END 2025-01-13 01:57 | disposition home or self-care (01) ==
LOC: ER 23:04
PROVIDERS: Emergency Medicine
DX: S72.002A Fracture of unspecified part of neck of left femur, initial encounter for closed fracture (principal); K21.9 Gastro-esophageal reflux disease without esophagitis; E11.9 Type 2 diabetes mellitus without complications; E78.5 Hyperlipidemia, unspecified; W01.0XXA Fall on same level from slipping, tripping and stumbling without subsequent striking against object, initial encounter; Z79.82 Long term (current) use of aspirin; Z79.84 Long term (current) use of oral hypoglycemic drugs; Z79.899 Other long term (current) drug therapy; Z88.0 Allergy status to penicillin; Z88.5 Allergy status to narcotic agent; Z88.8 Allergy status to other drugs, medicaments and biological substances
CPT/HCPCS: 73502; 80053; 85025; 96374; 96375; 96376; 99284-25; J1171; J1885

== ENCOUNTER 2025-01-18 21:21 | Inpatient (IN) | payer OTHER ==
[~2025-01-18] VITALS: Ht 165.1 cm; Wt 62.3 kg
[2025-01-22 15:42] VITALS: BP 118/73
== END 2025-01-22 17:11 | disposition home health service (06) | DRG 309 ==
LOC: ER 21:21 → ERHOLD 21:22 → PCU 21:22 → MEDS 01-19 15:06 → PCU 01-19 15:07 → MEDS 01-21 14:56
PROVIDERS: ADMIT Internal Medicine
DX: I48.91 Unspecified atrial fibrillation (principal); I24.89 Other forms of acute ischemic heart disease; E78.5 Hyperlipidemia, unspecified; I25.10 Atherosclerotic heart disease of native coronary artery without angina pectoris; F41.9 Anxiety disorder, unspecified; F32.A Depression, unspecified; G47.00 Insomnia, unspecified; K21.9 Gastro-esophageal reflux disease without esophagitis; D64.89 Other specified anemias; I10 Essential (primary) hypertension; K55.20 Angiodysplasia of colon without hemorrhage; I27.20 Pulmonary hypertension, unspecified; B96.4 Proteus (mirabilis) (morganii) as the cause of diseases classified elsewhere; E11.9 Type 2 diabetes mellitus without complications; K58.9 Irritable bowel syndrome, unspecified; R10.13 Epigastric pain; I08.3 Combined rheumatic disorders of mitral, aortic and tricuspid valves; Z95.1 Presence of aortocoronary bypass graft; Z79.899 Other long term (current) drug therapy; Z79.82 Long term (current) use of aspirin; Z88.8 Allergy status to other drugs, medicaments and biological substances; Z87.19 Personal history of other diseases of the digestive system; Z87.81 Personal history of (healed) traumatic fracture; Z98.1 Arthrodesis status; Z90.710 Acquired absence of both cervix and uterus; Z90.722 Acquired absence of ovaries, bilateral; Z90.79 Acquired absence of other genital organ(s); Z90.11 Acquired absence of right breast and nipple; Z98.51 Tubal ligation status

== ENCOUNTER 2025-04-13 14:00 | Inpatient (IN) | payer OTHER ==
[~2025-04-13] VITALS: Ht 167.6 cm; Wt 59.0 kg
[~2025-04-13 14:00] MED LIST changes: +Acetaminophen325 M1 PO; +Aspir 8181 MG PO; +BACLOFEN10 M4 PO; +BANOPHEN25 MG PO; +BELSOMRA10 MG PO; +BISA10S PR; +CLIMARA1 EACH VAG; +ELIQUIS5 M2 PO; -ESCI10; +MIDO5 PO; +MULVITA PO; +OMEP20ER PO; +OXYC10TA19 PO; +OZEMPIC0.25 MG/02 SQ
[2025-04-13] MEDS ORDERED: HYDROmorphone HCl/Pf 1MG SYR IV ONE ×2 (14:15→15:35)
[2025-04-13] MEDS ORDERED: Ondansetron HCl 2 MG / ML 2ML Vial IV ONE (14:15)
[2025-04-13 14:30] LABS: BASOPHILS ABSOLUTE AUTO 0.01 K/mm3 (0.00-0.23); BASOPHILS PERCENT AUTO 0 % (0-2); EOSINOPHILS ABSOLUTE AUTO 0.07 K/mm3 (0.00-0.68); EOSINOPHILS PERCENT AUTO 2 % (0-6); Hematocrit 34.1 % (33.0-51.0); Hemoglobin 11.3 g/dL (11.5-16.0); IMMATURE GRAN ABSOLUTE AUTO 0.04 K/mm3 (0.00-0.10); IMMATURE GRAN PERCENT AUTO 1 % (0-1); LYMPHOCYTES ABSOLUTE AUTO 0.85 K/mm3 (0.84-5.20); LYMPHOCYTES PERCENT AUTO 20 % (21-46); MONOCYTES ABSOLUTE AUTO 0.30 K/mm3 (0.16-1.47); MONOCYTES PERCENT AUTO 7 % (4-13); Mean Corpuscular HGB Conc 33.1 g/dL (31.5-36.5); Mean Corpuscular Volume 88 fL (80-100); NEUTROPHILS ABSOLUTE AUTO 2.92 K/mm3 (1.96-9.15); NEUTROPHILS PERCENT AUTO 70 % (41-73); NRBC ABSOLUTE 0.00 K/mm3 (0.00-0.02); NRBC Auto 0.0 /100 WBC (0.0-0.2); Platelet Count 197 K/mm3 (150-400); RDW Coefficient Variation 13.5 % (11.7-14.2); RDW Standard Deviation 43.5 fL (35.1-46.3)
[2025-04-13 15:01] LABS: Alanine Aminotransfer (ALT/SGP 26.0 U/L (12-78); Albumin, Blood 3.6 g/dL (3.4-5.0); Albumin/Globulin Ratio 1.1 (0.8-1.8); Anion Gap 7.0 mmol/L (3-11); Aspartate Aminotrans (AST/SGOT 22.0 U/L (12-37); Bilirubin, Total 0.4 mg/dL (0.1-1.0); Blood Urea Nitrogen 15.0 mg/dL (8-24); CO2, Blood 26.0 mmol/L (21-32); Calcium, Blood 9.3 mg/dL (8.5-10.1); Chloride, Blood 105.0 mmol/L (98-108); Creatinine, Blood 0.55 mg/dL (0.40-1.00); Globulin, Blood 3.3 g/dL (2.2-4.0); Glucose, Blood 148.0 mg/dL (70-99); Potassium, Blood 4.0 mmol/L (3.5-5.5); Sodium, Blood 134.0 mmol/L (136-145); Total Protein, Blood 6.9 g/dL (6.4-8.2)
[2025-04-13] MEDS ORDERED: HydrALAZINE HCl 20 MG / ML 1ML Vial IV PRN (16:15)
[2025-04-13] MEDS ORDERED: HYDROmorphone HCl/Pf 1MG SYR IV PRN (16:15)
[2025-04-13] MEDS ORDERED: Insulin Regular 100 UNIT/ML 10ML Vial SC SCH (16:30)
[2025-04-13] MEDS ORDERED: HYDROcodone 5-APAP 325 TAB PO PRN (18:40)
[2025-04-13 20:04] VITALS: BP 123/76
[2025-04-13] MEDS ORDERED: Cyclobenzaprine5 MG (21:57)
[2025-04-13] MEDS ORDERED: ESCI10 PO (21:58)
[2025-04-14] MEDS ORDERED: HYDROcodone 5-APAP 325 TAB PO PRN (00:45)
--- NOTE | 2025-04-14 01:10 | NUR ---
RN TO ROOM TO ROUND; PT SLEEPING, CALL LIGHT WITHIN REACH. TELE IN PLACE.
[2025-04-14 04:12] VITALS: BP 117/70
[2025-04-14 05:02] LABS: BASOPHILS ABSOLUTE AUTO 0.02 K/mm3 (0.00-0.23); BASOPHILS PERCENT AUTO 0 % (0-2); EOSINOPHILS ABSOLUTE AUTO 0.14 K/mm3 (0.00-0.68); EOSINOPHILS PERCENT AUTO 3 % (0-6); Hematocrit 32.3 % (33.0-51.0); Hemoglobin 10.4 g/dL (11.5-16.0); IMMATURE GRAN ABSOLUTE AUTO 0.02 K/mm3 (0.00-0.10); IMMATURE GRAN PERCENT AUTO 0 % (0-1); LYMPHOCYTES ABSOLUTE AUTO 0.69 K/mm3 (0.84-5.20); LYMPHOCYTES PERCENT AUTO 15 % (21-46); MONOCYTES ABSOLUTE AUTO 0.46 K/mm3 (0.16-1.47); MONOCYTES PERCENT AUTO 10 % (4-13); Mean Corpuscular HGB Conc 32.2 g/dL (31.5-36.5); Mean Corpuscular Volume 90 fL (80-100); NEUTROPHILS ABSOLUTE AUTO 3.18 K/mm3 (1.96-9.15); NEUTROPHILS PERCENT AUTO 71 % (41-73); NRBC ABSOLUTE 0.00 K/mm3 (0.00-0.02); NRBC Auto 0.0 /100 WBC (0.0-0.2); Platelet Count 169 K/mm3 (150-400); RDW Coefficient Variation 13.6 % (11.7-14.2); RDW Standard Deviation 44.7 fL (35.1-46.3)
[2025-04-14 05:26] LABS: Anion Gap 8.0 mmol/L (3-11); Blood Urea Nitrogen 12.0 mg/dL (8-24); CO2, Blood 26.0 mmol/L (21-32); Calcium, Blood 8.7 mg/dL (8.5-10.1); Chloride, Blood 105.0 mmol/L (98-108); Creatinine, Blood 0.64 mg/dL (0.40-1.00); Glucose, Blood 108.0 mg/dL (70-99); Potassium, Blood 4.0 mmol/L (3.5-5.5); Sodium, Blood 135.0 mmol/L (136-145)
--- NOTE | 2025-04-14 05:42 | NUR ---
SHIFT SUMMARY NO ACUTE EVENTS OVERNIGHT. PT WITH CONTINUED PAIN DURING NOC SHIFT AND WAS MEDICATED PER EMAR. PT WITH PUREWICK IN PLACE. PT LAST DOSE OF ELIQUIS YESTERDAY AND IS NPO EXCEPT FOR PO PAIN MEDS/SIPS IN CASE SURGERY SET FOR TODAY. PT HAD LEFT HIP FX REPAIR 3 MONTHS AGO.
[2025-04-14 07:25] VITALS: BP 130/75
--- NOTE | 2025-04-14 10:12 | NUR ---
PAIN REGIMEN PATIENT W/ R FEMUR FX - PLAN FOR REPAIR TOMORROW 04/15/25 PER MD LOPEZ. PATIENT REPORTING / PAIN DESPITE CURRENT REGIMEN OF IV DILAUDID AND PO NORCO. ICE PACK PLACED. PATIENT DESCRIBING PAIN "SPASMS." MD JAVEDETI CONTACTED. MD TO REVIEW CHART AND PLACE ORDERS FOR FLEXERIL.
[2025-04-14 12:33] VITALS: BP 142/91
[2025-04-14 14:48] VITALS: BP 118/83
--- NOTE | 2025-04-14 16:41 | NUR ---
SHIFT SUMMARY NO ACUTE CHANGES THIS SHIFT. PATIENT ALERT AND ORIENTED X4. COMMUNICATING NEEDS EFFECTIVELY. R FEMUR FX AWAITING REPAIR - NPO AT MIDNIGHT FOR PROCEDURE 04/15/25. VSS. TELEMETRY SHOWING SINUS 80s - NO EVENTS REPORTED BY SUPERVISOR CYTOLOGY. ON ROOM AIR, SATs >90%. RR EVEN, UNLABORED. CONTINOUS PULSE OX IN PLACE. FLEXERIL ADDED TO PAIN REGIMEN W/ IMPROVED MANAGEMENT. MANAGING PAIN PER EMAR AND W/ ICEPACK. BEDREST - REPOSITIONING IN BED TOLERATED. PW AND ATTENDS IN PLACE FOR URINARY MANAGEMENT. CALL LIGHT IN REACH.
[2025-04-14] MEDS ORDERED: HYDROmorphone HCl/Pf 1MG SYR IV PRN (17:35)
[2025-04-14 17:45] VITALS: BP 173/98
--- NOTE | 2025-04-14 17:54 | NUR ---
MENTATION AT APPROX 1730 - PATIENT CONTINUING TO REPORT 9/10 PAIN DESPITE ADMINISTRATION PER EMAR OF PO NORCO AND FLEXERIL W/ DOSE OF IV DILAUDID. PATIENT PALE W/ NEW TREMOR TO BUE. PATIENT ABLE TO STATE THAT NEW S/S RELATED TO INCREASED PAIN. MD MARTINS CONTACTED - ORDER RECEIVED FOR 1-2MG IV DILAUDID Q2H PRN. AT APPROX 1740, THIS RN W/ AIR COMPRESSOR MECHANIC ACOSTA AT BEDSIDE TO ASSESS PATIENT FURTHER. PATIENT REMAINS PALE. INCREASED TREMOR T/O BUE. NOW PULLING AT BLANKETS, PULSE OX. ALERT AND ORIENTED X4 T/O DAY - PATIENT NOW ONLY ABLE TO REPORT NAME/DATE OF AND THAT SHE IS IN THE HOSPITAL. DIFFICULTY W/ RECALL OF EVENTS LEADING TO ADMISSION. NOW EXPERIENCING DIFFICULTY FOLLOWING COMMANDS AND COMMUNICATING NEEDS. EPISODES OF WORD SALAD. EQUAL GREENSKEEPER SUPERVISOR STRENGTH. PERRLA. NO FACIAL DROOP NOTED. VS OBTAINED - BP 173/98, PULSE 100s. MD MARTINS CONTACTED W/ UPDATE. NO NEW ORDERS RECEIVED AT THIS TIME. MD TO ASSESS PATIENT AT BEDSIDE.
--- NOTE | 2025-04-14 18:12 | NUR ---
UPDATE MD MARTINS AT BEDSIDE. PATIENT NOW ABLE TO ANSWER ORIENTATION QUESTIONS APPROPRIATELY W/ CONTINUING EPISODES OF WORD SALAD. ABLE TO FOLLOW COMMANDS APPROPRIATELY. BRIEF NEURO EXAM COMPLETED BY MD. PATIENT DESCRIBING PREVIOUS EPISODE "I GOT REAL DIZZY." NO NEW ORDERS RECEIVED BY MD. CALL LIGHT IN REACH. BED ALARM ON.
[2025-04-14 19:22] VITALS: BP 159/105
--- NOTE | 2025-04-14 19:35 | NUR ---
1925 CHARGE NURSE TO ROOM DUE TO PT CONFUSION. RN TO ROOM TO ASSESS. PT HAVING DIFFICULTY FINDING WORDS, PT TACHYCARDIC. CALL TO HOSPITALIST AND ORDERS OBTAINED FOR LABS/UA.
[2025-04-14 20:06] LABS: BASOPHILS ABSOLUTE AUTO 0.02 K/mm3 (0.00-0.23); BASOPHILS PERCENT AUTO 0 % (0-2); EOSINOPHILS ABSOLUTE AUTO 0.14 K/mm3 (0.00-0.68); EOSINOPHILS PERCENT AUTO 2 % (0-6); Hematocrit 33.1 % (33.0-51.0); Hemoglobin 10.9 g/dL (11.5-16.0); IMMATURE GRAN ABSOLUTE AUTO 0.01 K/mm3 (0.00-0.10); IMMATURE GRAN PERCENT AUTO 0 % (0-1); LYMPHOCYTES ABSOLUTE AUTO 0.69 K/mm3 (0.84-5.20); LYMPHOCYTES PERCENT AUTO 12 % (21-46); MONOCYTES ABSOLUTE AUTO 0.42 K/mm3 (0.16-1.47); MONOCYTES PERCENT AUTO 7 % (4-13); Mean Corpuscular HGB Conc 32.9 g/dL (31.5-36.5); Mean Corpuscular Volume 88 fL (80-100); NEUTROPHILS ABSOLUTE AUTO 4.46 K/mm3 (1.96-9.15); NEUTROPHILS PERCENT AUTO 78 % (41-73); NRBC ABSOLUTE 0.00 K/mm3 (0.00-0.02); NRBC Auto 0.0 /100 WBC (0.0-0.2); Platelet Count 183 K/mm3 (150-400); RDW Coefficient Variation 13.5 % (11.7-14.2); RDW Standard Deviation 43.0 fL (35.1-46.3)
--- NOTE | 2025-04-14 22:32 | NUR ---
RN TO ROOM MULTIPLE TIMES SINCE SHIFT CHANGE. PT REMAINS CONFUSED WITH INTERMITTENT WORD SALAD AND DIFFICULTY FINDING WORDS. PT ABLE TO ANSWER NAME, . PT BELIEVES HER LEFT HIP IS BROKEN AND IS REMINDED THAT LEFT HIP WAS BROKEN 3 MONTHS AGO. PT VERBALIZED REMEMBERING.
--- NOTE | 2025-04-14 22:40 | NUR ---
COMPLETE PUREWICK CHANGE; PT UNABLE TO LAY IN PROPER POSITION FOR STRAIGHT CATH.
--- NOTE | 2025-04-14 23:14 | NUR ---
RN TO ROOM TO ROUND; PT CONFUSED AND TRYING TO PULL AT PUREWICK LINES. PT PENCIL IN WATER CUP AND PT REPORTS SHE ATE THE PENCIL ERASER. WHEN ASKED IF SHE WAS HUNGRY, SHE SAID NO; SHE JUST WANTED TO EAT THE ERASER. ITEMS REMOVED FROM TRAY TABLE.
[2025-04-15] VITALS (20 sets, daily range): BP systolic 110–168; BP diastolic 68–97
--- NOTE | 2025-04-15 01:53 | NUR ---
RN TO ROOM TO ROUND. PT CONTINUES TO BE CONFUSED. RN REDIRECTED PT AND PROVIDED ACTIVITY APRON.
[2025-04-15 02:08] LABS: Source, Urine Straight Cath
[2025-04-15 02:31] LABS: Bilirubin, Urine Neg (Neg); Glucose Qualitative, Urine Neg (Neg); Ketones, Urine 3+ (Neg); Leukocyte Esterase, Urine Neg (Neg); Protein, Urine Neg (Neg); Specific Gravity, Urine 1.010 (1.003-1.022); Urobilinogen, Urine NORM (Normal)
[2025-04-15 02:46] LABS: Color, Urine Yellow (P-Yellow)
--- NOTE | 2025-04-15 06:25 | NUR ---
SHIFT SUMMARY PT WITH INCREASED CONFUSION DURING SHIFT; PT WITH MULTIPLE REDIRECTIONS. PT NPO SINCE MIDNIGHT IN ANTICIPATION FOR SURGICAL REPAIR THIS MORNING OF RIGHT HIP FRACTURE.
[2025-04-15 06:47] LABS: BASOPHILS ABSOLUTE AUTO 0.01 K/mm3 (0.00-0.23); BASOPHILS PERCENT AUTO 0 % (0-2); EOSINOPHILS ABSOLUTE AUTO 0.14 K/mm3 (0.00-0.68); EOSINOPHILS PERCENT AUTO 2 % (0-6); Hematocrit 37.4 % (33.0-51.0); Hemoglobin 12.3 g/dL (11.5-16.0); IMMATURE GRAN ABSOLUTE AUTO 0.03 K/mm3 (0.00-0.10); IMMATURE GRAN PERCENT AUTO 0 % (0-1); LYMPHOCYTES ABSOLUTE AUTO 0.89 K/mm3 (0.84-5.20); LYMPHOCYTES PERCENT AUTO 12 % (21-46); MONOCYTES ABSOLUTE AUTO 0.71 K/mm3 (0.16-1.47); MONOCYTES PERCENT AUTO 10 % (4-13); Mean Corpuscular HGB Conc 32.9 g/dL (31.5-36.5); Mean Corpuscular Volume 90 fL (80-100); NEUTROPHILS ABSOLUTE AUTO 5.47 K/mm3 (1.96-9.15); NEUTROPHILS PERCENT AUTO 76 % (41-73); NRBC ABSOLUTE 0.02 K/mm3 (0.00-0.02); NRBC Auto 0.3 /100 WBC (0.0-0.2); Platelet Count 218 K/mm3 (150-400); RDW Coefficient Variation 13.5 % (11.7-14.2); RDW Standard Deviation 44.1 fL (35.1-46.3)
[2025-04-15] MEDS ORDERED: Dexamethasone Sod Phos 10 MG/ML 1ML VIAL ONE (07:13)
[2025-04-15] MEDS ORDERED: Ondansetron HCl 2 MG / ML 2ML Vial ONE (07:13)
[2025-04-15] MEDS ORDERED: FentaNYL Citrate 50 MCG/ML 2 ML Injection ONE ×2 (07:14)
[2025-04-15 07:18] LABS: Anion Gap 12.0 mmol/L (3-11); Blood Urea Nitrogen 12.0 mg/dL (8-24); CO2, Blood 19.0 mmol/L (21-32); Calcium, Blood 9.1 mg/dL (8.5-10.1); Chloride, Blood 107.0 mmol/L (98-108); Creatinine, Blood 0.58 mg/dL (0.40-1.00); Glucose, Blood 137.0 mg/dL (70-99); Potassium, Blood 3.8 mmol/L (3.5-5.5); Sodium, Blood 134.0 mmol/L (136-145)
[2025-04-15] MEDS ORDERED: Ondansetron HCl 2 MG / ML 2ML Vial IV PRN (07:25)
[2025-04-15] MEDS ORDERED: Albuterol 2.5 MG/3 ML VIAL INH PRN (07:25)
[2025-04-15] MEDS ORDERED: FentaNYL Citrate 50 MCG/ML 2 ML Injection IV PRN ×2 (07:25)
[2025-04-15] MEDS ORDERED: Ropivacaine 0.5% HCl/Pf 123.125 MG,EPINEPHrine HCL 0.25 MG,Ketorolac Tromethamine 15 MG... INFIL SCH (07:35)
[2025-04-15] MEDS ORDERED: Tranexamic Acid 100 ML IV SCH (07:35)
[2025-04-15] MEDS ORDERED: CeFAZolin Sodium 1000 mg Vial ONE (07:37)
[2025-04-15] MEDS ORDERED: HYDROmorphone HCl/Pf 1MG SYR IV PRN (07:55)
--- NOTE | 2025-04-15 08:28 | NUR ---
PER PATIENTs SPOUSE, PATIENT EXPERIENCES MENTATION CHANGES W/ MUSCLE RELAXER USE. PRIMARY RN NOTIFIED.
[2025-04-15] MEDS ORDERED: Multivitamins 1 Tab PO SCH (09:00)
[2025-04-15] MEDS ORDERED: Ketorolac Tromethamine 30mg Vial ONE (09:12)
--- NOTE | 2025-04-15 10:21 | NUR ---
PT TO ROOM 214 FROM PACU. R HIP DRESSING CDI. ABLE TO WIGGLE TOES DISTALLY. POSITIVE PULSE DISTALLY. LUNGS CLEAR BL, BELLY SOFT. DENIES PAIN PRESENTLY. POST OP VS STARTED. WILL CONTINUE TO MONITOR.
--- NOTE | 2025-04-15 15:03 | NUR ---
PT FOUND TO HAVE TAKEN OFF GOWN, SOCKS, ATTENDS AND FOUND PULLING ON IV. SO ARRIVED AT THIS TIME. SPOUSE STATES "THIS IS USUALLY WHAT HAPPENS WITH MUSCLE RELAXANTS". SO AGREES TO STAY WITH PATIENT. LARGE INCONTINENT VOID INTO BEDDING. SECOND VOID SINCE LEAVING PACU. PT CHANGED AND CLEANED UP. BEDDING CHANGED. DIGITAL INTERN NOTIFIED OF CONFUSED STATUS FOR TONIGHTS STAFFING PURPOSES. WILL CONTINUE TO MONITOR.
[2025-04-15] MEDS ORDERED: HYDROcodone 5-APAP 325 TAB PO PRN (15:35)
--- NOTE | 2025-04-15 17:47 | NUR ---
SHIFT SUMMARY PT ALERT AND ORIENTED TO SELF ONLY. CONTINUE TO PULL AT LINE AND ATTEMPT TO TAKE CLOTHING OFF/GET OOB. SITTER AT BEDSIDE. RECENTLY MEDICATED FOR PAIN. WILL CONTINUE TO MONITOR.
--- NOTE | 2025-04-15 19:48 | NUR ---
CALL FROM SIDEROGRAPHER. PT PULLING AT SCD. RN REMOVED SCD FOR BREAK DUE TO PT SWEATING UNDERNEATH AND BEING UNCOMFORTABLE.
--- NOTE | 2025-04-16 01:02 | NUR ---
RN TO ROOM; CALL FROM SITTER. PT AGITATED/ANXIOUS. PT NOT ABLE TO BE RIDIRECTED. BRIEF CHANGE COMPLETE. SITTER AT BEDSIDE.
[2025-04-16] MEDS ORDERED: Magnesium Hydroxide Conc 10 ML UDC PO PRN (02:00)
[2025-04-16 03:35] VITALS: BP 151/90
[2025-04-16 05:43] LABS: BASOPHILS ABSOLUTE AUTO 0.01 K/mm3 (0.00-0.23); BASOPHILS PERCENT AUTO 0 % (0-2); EOSINOPHILS ABSOLUTE AUTO 0.00 K/mm3 (0.00-0.68); EOSINOPHILS PERCENT AUTO 0 % (0-6); Hematocrit 27.2 % (33.0-51.0); Hemoglobin 9.1 g/dL (11.5-16.0); IMMATURE GRAN ABSOLUTE AUTO 0.03 K/mm3 (0.00-0.10); IMMATURE GRAN PERCENT AUTO 0 % (0-1); LYMPHOCYTES ABSOLUTE AUTO 0.59 K/mm3 (0.84-5.20); LYMPHOCYTES PERCENT AUTO 7 % (21-46); MONOCYTES ABSOLUTE AUTO 0.82 K/mm3 (0.16-1.47); MONOCYTES PERCENT AUTO 9 % (4-13); Mean Corpuscular HGB Conc 33.5 g/dL (31.5-36.5); Mean Corpuscular Volume 87 fL (80-100); NEUTROPHILS ABSOLUTE AUTO 7.37 K/mm3 (1.96-9.15); NEUTROPHILS PERCENT AUTO 84 % (41-73); NRBC ABSOLUTE 0.00 K/mm3 (0.00-0.02); NRBC Auto 0.0 /100 WBC (0.0-0.2); Platelet Count 180 K/mm3 (150-400); RDW Coefficient Variation 13.7 % (11.7-14.2); RDW Standard Deviation 43.2 fL (35.1-46.3)
[2025-04-16 06:08] LABS: Anion Gap 11.0 mmol/L (3-11); Blood Urea Nitrogen 12.0 mg/dL (8-24); CO2, Blood 22.0 mmol/L (21-32); Calcium, Blood 8.6 mg/dL (8.5-10.1); Chloride, Blood 108.0 mmol/L (98-108); Creatinine, Blood 0.57 mg/dL (0.40-1.00); Glucose, Blood 164.0 mg/dL (70-99); Potassium, Blood 3.3 mmol/L (3.5-5.5); Sodium, Blood 138.0 mmol/L (136-145)
--- NOTE | 2025-04-16 06:35 | NUR ---
SHIFT SUMMARY PT CONTINUED TO HAVE EPISODES OF LUCIDITY BUT MOST FREQUENTLY HAD CONFUSION. RN AND AUSTRALIAN RULES FOOTBALLER TO ROOM MULTIPLE TIMES FOR ASSISTANCE. PT ABLE TO ROLL WELL WITH MINIMAL ASSISTANCE. PT GIVEN PO XYPREXA AFTER IV WAS PULLED IN MIDDLE OF THE NIGHT. PT APPEARS TO HAVE SETTLED SOME AFTER TAKING MEDICATION. DIRECTOR INTELLIGENCE ANALYSIS PROGRAMS AT BEDSIDE.
[2025-04-16 07:24] VITALS: BP 149/91
[2025-04-16 11:47] VITALS: BP 128/76
[2025-04-16 14:32] VITALS: BP 116/67
[2025-04-16] MEDS ORDERED: ONE A DAY MEN PO (17:02)
[2025-04-16] MEDS ORDERED: HYDR1TAB94 PO (17:06)
[2025-04-16] MEDS ORDERED: SENN187 PO (17:06)
--- NOTE | 2025-04-16 17:12 | NUR ---
SUMMARY ASSUMED CARE OF PT @0700. AXO2, CONFUSED TO LOCATION, DATE, AND SPECIFICS TO SITUATION, ALSO PRESENTED WITH WORD SALAD. AROUND 1000 THIS CLEARED UP AND HAS PROGRESSIVELY IMPROVED, NOW PT TO BASELINE MENTATION, AXO4. VSS. DOCTOR DOUG REASSESSED PT, OK'D FOR DC. DRESSINGS TO R HIP, CDI. AMBULATING WELL. DC ORDERS RECEIVED. DC INSTRUCTIONS PROVIDED TO PT, AWAITING SPOUSE TO PICK PT UP NOW.
--- NOTE | 2025-04-16 17:55 | NUR ---
dc'd @1750 with spouse AXO4. DC INSTRUCTIONS WITH PT, WRITTEN PAIN SCRIPT WITH INSTRUCTIONS. POWERGLIDE PULLED OUT, WRAPPED WITH COBAN/GAUZE. DRESSINGS CDI TO HIP. PT OUT OF ROOM VIA WHEELCHAIR @1750.
== END 2025-04-16 17:51 | disposition home health service (06) | DRG 522 ==
LOC: ER 14:00 → SURS 16:13
PROVIDERS: Internal Medicine; Orthopaedic Surgery; Student in an Organized Health Care Education/Training Program; ADMIT Family Medicine
PROC: 0SRR03Z Replacement of Right Hip Joint, Femoral Surface with Ceramic Synthetic Substitute, Open Approach (ICD-10-PCS; principal; 2025-04-15 07:00)
DX: S72.011A Unspecified intracapsular fracture of right femur, initial encounter for closed fracture (principal); E87.1 Hypo-osmolality and hyponatremia; I25.10 Atherosclerotic heart disease of native coronary artery without angina pectoris; E78.5 Hyperlipidemia, unspecified; I48.0 Paroxysmal atrial fibrillation; D64.9 Anemia, unspecified; E11.42 Type 2 diabetes mellitus with diabetic polyneuropathy; K21.9 Gastro-esophageal reflux disease without esophagitis; F41.9 Anxiety disorder, unspecified; F32.A Depression, unspecified; Z88.5 Allergy status to narcotic agent; Z88.8 Allergy status to other drugs, medicaments and biological substances; Z79.84 Long term (current) use of oral hypoglycemic drugs; Z79.899 Other long term (current) drug therapy; Z79.01 Long term (current) use of anticoagulants; Z96.642 Presence of left artificial hip joint; Z98.890 Other specified postprocedural states; Z98.51 Tubal ligation status; Z90.710 Acquired absence of both cervix and uterus; Z98.1 Arthrodesis status; Z96.651 Presence of right artificial knee joint; Z95.1 Presence of aortocoronary bypass graft; Z90.722 Acquired absence of ovaries, bilateral; W01.0XXA Fall on same level from slipping, tripping and stumbling without subsequent striking against object, initial encounter
CPT/HCPCS: 36415; 70450; 73502; 80048; 80053; 81003; 82947; 85025; 93005; 93010; 94762; 96374; 96375; 96376; 97110; 97116; 97162; 97530; 99285-25; A6590; A9270; J0166; J0690; J0735; J1100; J1171; J1815; J1885; J2405; J2704; J2795; J3010; J7120

== ENCOUNTER 2025-05-30 11:25 | Inpatient (IN) | payer OTHER ==
[~2025-05-30] VITALS: Ht 165.1 cm; Wt 59.6 kg
[~2025-05-30 11:25] MED LIST changes: +Cyclobenzaprine5 MG; +HYDR1TAB94 PO; +ONE A DAY MEN PO; +SENN187 PO
[2025-05-30 11:45] LABS: BASOPHILS ABSOLUTE AUTO 0.03 K/mm3 (0.00-0.23); BASOPHILS PERCENT AUTO 0 % (0-2); EOSINOPHILS ABSOLUTE AUTO 0.14 K/mm3 (0.00-0.68); EOSINOPHILS PERCENT AUTO 2 % (0-6); Hematocrit 30.7 % (33.0-51.0); Hemoglobin 10.3 g/dL (11.5-16.0); IMMATURE GRAN ABSOLUTE AUTO 0.02 K/mm3 (0.00-0.10); IMMATURE GRAN PERCENT AUTO 0 % (0-1); LYMPHOCYTES ABSOLUTE AUTO 0.93 K/mm3 (0.84-5.20); LYMPHOCYTES PERCENT AUTO 13 % (21-46); MONOCYTES ABSOLUTE AUTO 0.39 K/mm3 (0.16-1.47); MONOCYTES PERCENT AUTO 6 % (4-13); Mean Corpuscular HGB Conc 33.6 g/dL (31.5-36.5); Mean Corpuscular Volume 86 fL (80-100); NEUTROPHILS ABSOLUTE AUTO 5.41 K/mm3 (1.96-9.15); NEUTROPHILS PERCENT AUTO 78 % (41-73); NRBC ABSOLUTE 0.00 K/mm3 (0.00-0.02); NRBC Auto 0.0 /100 WBC (0.0-0.2); Platelet Count 252 K/mm3 (150-400); RDW Coefficient Variation 13.7 % (11.7-14.2); RDW Standard Deviation 42.2 fL (35.1-46.3)
[2025-05-30 12:15] LABS: Anion Gap 8.0 mmol/L (3-11); Blood Urea Nitrogen 16.0 mg/dL (8-24); CO2, Blood 23.0 mmol/L (21-32); Calcium, Blood 9.2 mg/dL (8.5-10.1); Chloride, Blood 109.0 mmol/L (98-108); Creatinine, Blood 0.64 mg/dL (0.40-1.00); Glucose, Blood 165.0 mg/dL (70-99); Magnesium, Blood 2.0 mg/dL (1.6-2.4); Potassium, Blood 4.0 mmol/L (3.5-5.5); Sodium, Blood 136.0 mmol/L (136-145)
[2025-05-30 12:49] LABS: Thyroid Stimulating Hormone 1.62 uIU/mL (0.360-4.800)
[2025-05-30] MEDS ORDERED: Morphine Sulfate 4 MG/1 ML Injection IV ONE (15:35)
[2025-05-30 17:10] LABS: Prothrombin Time Results 11.8 Sec (9.7-11.5)
[2025-05-30] MEDS ORDERED: Heparin Sodium 5000 Units/ML 1ML MDV IV ONE (17:20)
[2025-05-30] MEDS ORDERED: Heparin Sodium,Porcine/0.5 NS 500 ML IV SCH (17:20)
[2025-05-30] MEDS ORDERED: MULVITA (20:41)
[2025-05-30 20:44] VITALS: BP 120/70
[2025-05-30] MEDS ORDERED: Insulin Human Lispro 100 Units/ML 3ML Syringe SC SCH (21:30)
[2025-05-30] MEDS ORDERED: Polyethylene Glycol 3350 17 gm PO PRN (21:30)
[2025-05-31] VITALS (7 sets, daily range): BP systolic 126–166; BP diastolic 77–92
[2025-05-31] MEDS ORDERED: Dose Adjust by Pharmacy XX STA ×3 (00:51→14:30)
[2025-05-31] MEDS ORDERED: Heparin Sodium 5000 Units/ML 1ML MDV IV ONE ×2 (00:55→14:35)
--- NOTE | 2025-05-31 04:46 | NUR ---
SHIFT SUMMARY; AFTER ADMIT, AND RESTARTING HEPARIN IV DRIP. PATIENT DECLINED ANY CP. WILL CALL IF SHE NEEDS TO GET UP. MEDICATED FOR GENRALIZED DISCOMFORTS.
[2025-05-31 07:11] LABS: BASOPHILS ABSOLUTE AUTO 0.03 K/mm3 (0.00-0.23); BASOPHILS PERCENT AUTO 1 % (0-2); EOSINOPHILS ABSOLUTE AUTO 0.14 K/mm3 (0.00-0.68); EOSINOPHILS PERCENT AUTO 3 % (0-6); Hematocrit 34.0 % (33.0-51.0); Hemoglobin 11.0 g/dL (11.5-16.0); IMMATURE GRAN ABSOLUTE AUTO 0.01 K/mm3 (0.00-0.10); IMMATURE GRAN PERCENT AUTO 0 % (0-1); LYMPHOCYTES ABSOLUTE AUTO 1.33 K/mm3 (0.84-5.20); LYMPHOCYTES PERCENT AUTO 24 % (21-46); MONOCYTES ABSOLUTE AUTO 0.48 K/mm3 (0.16-1.47); MONOCYTES PERCENT AUTO 9 % (4-13); Mean Corpuscular HGB Conc 32.4 g/dL (31.5-36.5); Mean Corpuscular Volume 88 fL (80-100); NEUTROPHILS ABSOLUTE AUTO 3.49 K/mm3 (1.96-9.15); NEUTROPHILS PERCENT AUTO 64 % (41-73); NRBC ABSOLUTE 0.00 K/mm3 (0.00-0.02); NRBC Auto 0.0 /100 WBC (0.0-0.2); Platelet Count 281 K/mm3 (150-400); RDW Coefficient Variation 14.3 % (11.7-14.2); RDW Standard Deviation 45.3 fL (35.1-46.3)
[2025-05-31 07:37] LABS: Alanine Aminotransfer (ALT/SGP 26.0 U/L (12-78); Albumin, Blood 4.0 g/dL (3.4-5.0); Albumin/Globulin Ratio 1.2 (0.8-1.8); Anion Gap 9.0 mmol/L (3-11); Aspartate Aminotrans (AST/SGOT 24.0 U/L (12-37); Bilirubin, Total 0.3 mg/dL (0.1-1.0); Blood Urea Nitrogen 15.0 mg/dL (8-24); CO2, Blood 25.0 mmol/L (21-32); Calcium, Blood 9.2 mg/dL (8.5-10.1); Chloride, Blood 109.0 mmol/L (98-108); Creatinine, Blood 0.56 mg/dL (0.40-1.00); Globulin, Blood 3.4 g/dL (2.2-4.0); Glucose, Blood 144.0 mg/dL (70-99); Potassium, Blood 3.8 mmol/L (3.5-5.5); Sodium, Blood 139.0 mmol/L (136-145); Total Protein, Blood 7.4 g/dL (6.4-8.2)
[2025-05-31] MEDS ORDERED: METO25 PO (09:01)
[2025-05-31] MEDS ORDERED: METO50 PO (09:01)
--- NOTE | 2025-05-31 18:00 | NUR ---
SHIFT SUMMARY PATIENT ALERT AND INTERACTIVE. PATIENT INDEPENDENT IN THE ROOM. IV HEPARIN INFUSING. PATIENT EVALUATED BY CARDIOLOGY. PATIENT TO GO TO [facility] TOMORROW FOR FEMORAL ACCESS ANGIOGRAM. PATIENT DENIES CP TODAY. PATIENT VERY ANXIOUS AND CRYING AT TIMES. PATIENT STATES THAT SHE IS OVERWHELMED AND AFRAID THAT SHE MAY HAVE CAUSED ALL OF THIS BY NOT TAKING MEDS CORRECTLY. PROVIDED REASSURANCE AND SUPPORTIVE LISTENING. ORDERS FOR SLEEP AID AND ANXIETY MEDICAIONS OBTAINED.
[2025-06-01] VITALS (11 sets, daily range): BP systolic 133–169; BP diastolic 75–96
[2025-06-01] MEDS ORDERED: HydrALAZINE HCl 20 MG / ML 1ML Vial IV PRN (00:10)
--- NOTE | 2025-06-01 03:11 | NUR ---
SHIFT SUMMARY: PT IS AOX4 AND ABLE TO MAKE NEEDS KNOWN. PT SLIGHTLY ANXIOUS AND TEARFUL AT TIMES THROUGH OUT THE NIGHT. PT IS NPO OF MIDNIGHT AND THE PLAN IS FOR PT TO GO TO THE [facility] PR[facility] OPER[facility] ON 06/01 AND THEN TRANSFER TO PCU FROM THERE. PT MEDICATED PER EMAR AND IS IND IN ROOM. HEPARIN DRIP RUNNING AND VERIFIED AT SHIFT CHANGE AND AGAIN WHEN NEW BAG WAS HUNG. NO ACUTE CHANGES THIS SHIFT.
[2025-06-01 03:17] LABS: BASOPHILS ABSOLUTE AUTO 0.02 K/mm3 (0.00-0.23); BASOPHILS PERCENT AUTO 1 % (0-2); EOSINOPHILS ABSOLUTE AUTO 0.12 K/mm3 (0.00-0.68); EOSINOPHILS PERCENT AUTO 3 % (0-6); Hematocrit 28.8 % (33.0-51.0); Hemoglobin 9.4 g/dL (11.5-16.0); IMMATURE GRAN ABSOLUTE AUTO 0.01 K/mm3 (0.00-0.10); IMMATURE GRAN PERCENT AUTO 0 % (0-1); LYMPHOCYTES ABSOLUTE AUTO 1.15 K/mm3 (0.84-5.20); LYMPHOCYTES PERCENT AUTO 28 % (21-46); MONOCYTES ABSOLUTE AUTO 0.52 K/mm3 (0.16-1.47); MONOCYTES PERCENT AUTO 13 % (4-13); Mean Corpuscular HGB Conc 32.6 g/dL (31.5-36.5); Mean Corpuscular Volume 86 fL (80-100); NEUTROPHILS ABSOLUTE AUTO 2.28 K/mm3 (1.96-9.15); NEUTROPHILS PERCENT AUTO 56 % (41-73); NRBC ABSOLUTE 0.00 K/mm3 (0.00-0.02); NRBC Auto 0.0 /100 WBC (0.0-0.2); Platelet Count 202 K/mm3 (150-400); RDW Coefficient Variation 14.1 % (11.7-14.2); RDW Standard Deviation 44.1 fL (35.1-46.3)
[2025-06-01] MEDS ORDERED: Dose Adjust by Pharmacy XX STA (04:09)
[2025-06-01] MEDS ORDERED: NS 1,000 ML IV ONE ×2 (06:29→06:41)
[2025-06-01] MEDS ORDERED: Heparin Sodium 1000 Units/ML 10ML MDV ONE ×2 (06:29→07:51)
[2025-06-01] MEDS ORDERED: Nitroglycerin 2 MG/20 ML BTL ONE (06:29)
[2025-06-01] MEDS ORDERED: NS 250 ML IV ONE (06:29)
[2025-06-01] MEDS ORDERED: Verapamil HCL 2.5 MG/ML 2ML Injection ONE (06:29)
[2025-06-01] MEDS ORDERED: Midazolam HCl 1MG / ML 2ML Vial ONE ×2 (06:41→07:41)
[2025-06-01] MEDS ORDERED: FentaNYL Citrate 50 MCG/ML 2 ML Injection ONE ×2 (06:41→07:41)
[2025-06-01] MEDS ORDERED: NS 500 ML IV ONE (08:09)
--- NOTE | 2025-06-01 09:00 | NUR ---
PT PT [facility] RECOVERY ROOM WHILE WAITING FOR PCU BED. PT LAYING SUPINE, DROWSY, WAKES WITH VERBAL STIMULI. VSS.
--- NOTE | 2025-06-01 10:00 | NUR ---
PT SLEEPING, VSS. R GROIN ACCESS SITE SOFE, NON TENDER, NO BLEEDING OR HEMATOMA NOTED.
--- NOTE | 2025-06-01 10:22 | NUR ---
DR ROSADO AT BEDSIDE TO UPDATE PT AND SPOUSE
--- NOTE | 2025-06-01 10:42 | NUR ---
PT TRANSFERRED TO U BY SUNI ESQUEDA.
--- NOTE | 2025-06-01 10:58 | NUR ---
Pt arrived to PCU 14. She is completely awake and oriented. is at the bedside. Right groin site WNL, angioseal was placed at 0845 per report. HOB gradually elevated to 25 degrees and she was given the scheduled po medications as indicated. She said her back pain is easing up now.
--- NOTE | 2025-06-01 12:44 | NUR ---
Pt is calm, states that she feels pretty good. Assisted up to use the BSC and have BM. She denies any discomfort/pain/dyspnea. Right groin site remains WNL and without any changes since her arrival from the computer lab aide.
--- NOTE | 2025-06-01 13:03 | NUR ---
Pt and her were educated on the importance of medication compliance in order to keep her coronary artery stent patent and also for control of her blood pressure, reduce cardiac workload and optimize her cardiovascular functioning. She said that they are moving to [place] and will need to get new medical insurance, providers, etc. Recommended that pt have plenty of medication supply in the interim and not to delay setting up those things in order to not have any lapse in her medications nor in seeing a provider. Pt verbalized understanding.
--- NOTE | 2025-06-01 15:27 | NUR ---
Dr. Hoang here to round on the patient.
--- NOTE | 2025-06-01 16:10 | NUR ---
Dr. GARCIA here to see the patient. States she is ok for discharge today; Integral that she get her medications at the pharmacy before they close at 6 pm so that she can take it in the morning. Dr. Hoang was notified by Dr. GARCIA.
[2025-06-01] MEDS ORDERED: ASPI81CH PO (17:06)
[2025-06-01] MEDS ORDERED: METO50ER PO (17:06)
[2025-06-01] MEDS ORDERED: CLOPIDOGREL300 M1 PO (17:08)
[2025-06-01] MEDS ORDERED: CLOP75 PO (17:08)
[2025-06-01] MEDS ORDERED: LOSA25 PO (17:09)
--- NOTE | 2025-06-01 18:36 | NUR ---
Pt and her were educated on femoral access site care this evening. Also educated on medications, what they are for, doses and directions. All medications were reviewed and pt verbalized understanding. Emphasized to pt to review them with her PCP and take her list in when she has her follow up appointment. Follow up appointment instructions for cardiology as well as PCP were reviewed. Pt was taken out in wheelchair by RN to private vehicle driven by her Chay.
== END 2025-06-01 18:00 | disposition home or self-care (01) | DRG 324 ==
LOC: ER 11:25 → MEDS 17:31 → PCU 06-01 08:35
PROVIDERS: Emergency Medicine; Registered Nurse; ADMIT Internal Medicine
PROC: 027034Z Dilation of Coronary Artery, One Artery with Drug-eluting Intraluminal Device, Percutaneous Approach (ICD-10-PCS; principal; 2025-06-01)
PROC: 02F03ZZ Fragmentation in Coronary Artery, One Artery, Percutaneous Approach (ICD-10-PCS; 2025-06-01)
PROC: B240ZZ3 Ultrasonography of Single Coronary Artery, Intravascular (ICD-10-PCS; 2025-06-01)
PROC: B2121ZZ Fluoroscopy of Single Coronary Artery Bypass Graft using Low Osmolar Contrast (ICD-10-PCS; 2025-06-01)
PROC: B2111ZZ Fluoroscopy of Multiple Coronary Arteries using Low Osmolar Contrast (ICD-10-PCS; 2025-06-01)
PROC: B2181ZZ Fluoroscopy of Left Internal Mammary Bypass Graft using Low Osmolar Contrast (ICD-10-PCS; 2025-06-01)
DX: I21.4 Non-ST elevation (NSTEMI) myocardial infarction (principal); I50.32 Chronic diastolic (congestive) heart failure; E78.5 Hyperlipidemia, unspecified; F32.A Depression, unspecified; I25.10 Atherosclerotic heart disease of native coronary artery without angina pectoris; I27.20 Pulmonary hypertension, unspecified; K58.9 Irritable bowel syndrome, unspecified; K21.9 Gastro-esophageal reflux disease without esophagitis; F41.9 Anxiety disorder, unspecified; I48.0 Paroxysmal atrial fibrillation; E11.65 Type 2 diabetes mellitus with hyperglycemia; R79.1 Abnormal coagulation profile; I11.0 Hypertensive heart disease with heart failure; I08.3 Combined rheumatic disorders of mitral, aortic and tricuspid valves; D64.9 Anemia, unspecified; I25.84 Coronary atherosclerosis due to calcified coronary lesion; M54.12 Radiculopathy, cervical region; I25.2 Old myocardial infarction; Z96.651 Presence of right artificial knee joint; Z88.8 Allergy status to other drugs, medicaments and biological substances; Z88.5 Allergy status to narcotic agent; Z79.84 Long term (current) use of oral hypoglycemic drugs; Z79.01 Long term (current) use of anticoagulants; Z95.5 Presence of coronary angioplasty implant and graft; Z79.85 Long-term (current) use of injectable non-insulin antidiabetic drugs; Z95.1 Presence of aortocoronary bypass graft; Z98.1 Arthrodesis status
CPT/HCPCS: 36415; 71045; 71260; 76937; 80048; 80053; 82947; 83735; 84439; 84443; 84484; 85025; 85347; 85379; 85610; 85730; 92920; 92941; 92972; 92978; 93005; 93010; 93308; 93321; 93454; 96365; 96366; 96374-59; 96375; 96376; 99152; 99153; 99285-25; A9270; C1725; C1753; C1760; C1761; C1769; C1874; C1887; C1894; C9600; C9606; G0378; J1644; J2250; J2270; J3010; J7030; J7040; J7050; Q9967